=== PATIENT | male | born 1995 | race Caucasian/White ===

== ENCOUNTER 2018-11-01 12:05 | Emergency (ER) | payer OTHER ==
[2018-11-01 12:46] VITALS: BP 172/75; PULSE 99; RESP 18; TEMP 98.5
--- NOTE | 2018-11-01 14:45 | ED ---
Extremity Problem HPI - General Chief complaint: Extremity Problem,Nontraumatic Stated complaint: Leg pain Time Seen by Provider: 11/01/18 13:29 Source: patient Mode of arrival: ambulatory Limitations: no limitations - History of Present Illness Initial comments: Patient is a 22-year-old male complaining of right upper leg/glut pain that radiates down towards the knee. It started about 3 weeks ago after helping a friend move. He is pain-free at rest and lying down. Pain increases when he is walking or standing for long periods of time. Denies any trauma/falls. 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 He has tried Motrin for pain relief with little improvement. - Related Data Allergies Allergy/AdvReac Type Severity Reaction Status Date / Time Penicillins Allergy Rash/Hives Verified 11/01/18 12:47 Review of Systems ROS Statement: Those systems with pertinent positive or pertinent negative responses have been documented in the HPI. ROS Other: All systems not noted in ROS Statement are negative. Past Medical History Past Medical History: No Reported History History of Any Multi-Drug Resistant Organisms: None Reported Past Surgical History: Orthopedic Surgery Past Psychological History: Anxiety Smoking Status: Current every day smoker Past Alcohol Use History: Occasional Past Drug Use History: Marijuana General Exam - General Exam Comments Initial Comments: General: [Well-developed well-nourished distress] HEENT: [Normocephalic/atraumatic, PERLL, pharynx erythema, swallowing well, EAC no erythema, no exudates, TM clear, no cervical lymph nodes] Neck: [Supple, nontender, trachea midline] Chest/Lungs: [Normal respirations, no signs of respiratory distress clear to auscultation bilaterally no wheezes, rales, rhonchi] Cardiac: [Regular rate and rhythm, normal S1-S2, no murmurs rubs or gallops ] Abdomen/GI: [Soft nontender, bowel sounds equal or quadrant x4, no guarding, no rebound no CVA tenderness] : [Deferred] Musculoskeletal: [TTP in right glut, lateral hip, + SLR on the right with increasing pain. No pain on the spine or SI joint.] Skin: [Warmth, no rashes or lesions, no cyanosis or diaphoresis] Neurologic: [AAO x 3, CN 2-12 intact, ] Psychiatric: [Mood and affect normal, judgment normal] Limitations: no limitations Course Vital Signs 11/01/18 12:44 Temperature 98.5 F Pulse Rate 99 Respiratory 18 Rate Blood Pressure 172/75 O2 Sat by Pulse 95 Oximetry Medical Decision Making - Medical Decision Making Patient is a 22-year-old male complaining of right hip pain 3 weeks after helping a friend move. Describes the pain as radiating down to the right knee. Pain with straight leg raise. Discussed with patient sciatica. Discharged home with instructions for heating stretching and follow-up with primary care if pain continues. Suggested trying Aleve for pain. Disposition Clinical Impression: Sciatica, right side Narrative: Please return to the Emergency Department if symptoms worsen or any other concerns. Hat, stretches, ibuprofen or Aleve as needed. Disposition: HOME SELF-CARE Condition: Stable Instructions (If sedation given, give patient instructions): Sciatica (ED) Additional Instructions: Please return to the Emergency Department if symptoms worsen or any other concerns. Is patient prescribed a controlled substance at d/c from ED?: No Referrals: None,Stated [Primary Care Provider] - 1-2 days
== END 2018-11-01 15:10 | disposition home or self-care (01) ==
LOC: EC 12:05
DX: M54.31 Sciatica, right side (principal); F17.200 Nicotine dependence, unspecified, uncomplicated; Z88.0 Allergy status to penicillin
CPT/HCPCS: 99283

== ENCOUNTER → 2019-11-06 | Outpatient (CLI) | payer OTHER ==
[2019-11-06 15:23] LABS: Basophils # (A) 0.1 k/uL (0-0.2); Basophils % (A) 1 %; Eosinophils # (A) 0.2 k/uL (0-0.7); Eosinophils % (A) 2 %; Lymphocytes # (A) 1.2 k/uL (1.0-4.8); Lymphocytes % (A) 15 %; MCH 33.5 pg (25.0-35.0); MCHC 33.5 g/dL (31.0-37.0); MCV 100.1 fL (80.0-100.0); Mean Platelet Volume 6.4; Monocytes # (A) 0.5 k/uL (0-1.0); Monocytes % (A) 6 %; Neutrophils % (A) 74 %; Platelet Count 284 k/uL (150-450); RDW 13.4 % (11.5-15.5); WBC 8.1 k/uL (3.8-10.6)
[2019-11-06 15:24] LABS: HGB 20.4 gm/dL (13.0-17.5)
[2019-11-07 03:32] LABS: African American GFR (CKD) 154.2 (60.0-200.0); Albumin 5.2 g/dL (3.80-4.90); Albumin/Globulin Ratio 1.68 (1.60-3.17); Anion Gap 11.9 mmol/L (4.00-12.00); BUN/Creat Ratio 8.57 Ratio (12.00-20.00); Calcium 10.4 mg/dL (8.7-10.3); Carbon Dioxide 23.1 mmol/L (21.6-31.8); Globulin 3.1 g/dL (1.6-3.3); Potassium 4.2 mmol/L (3.5-5.5); Total Bilirubin 0.8 mg/dL (0.3-1.2); Total Protein 8.3 g/dL (6.2-8.2)
== END | disposition home or self-care (01) ==
LOC: LABWHC1 14:54
PROVIDERS: ATTEND Family Medicine
DX: Z01.818 Encounter for other preprocedural examination (principal); R00.0 Tachycardia, unspecified
CPT/HCPCS: 36415; 80053; 84443; 85025

== ENCOUNTER → 2019-11-07 | Outpatient (CLI) | payer OTHER ==
[2019-11-07 13:33] LABS: INR 1.1 (<1.2)
== END | disposition home or self-care (01) ==
LOC: LABWHC1 13:09
PROVIDERS: ATTEND Family Medicine
DX: Z01.818 Encounter for other preprocedural examination (principal); R00.0 Tachycardia, unspecified
CPT/HCPCS: 36415; 85610

== ENCOUNTER → 2019-11-09 | Outpatient (CLI) | payer OTHER ==
--- NOTE | 2019-11-09 14:52 | XR ---
EXAMINATION TYPE: XR chest 2V DATE OF EXAM: 11/09/2019 COMPARISON: NONE HISTORY: Z 71.3 TECHNIQUE: Frontal and lateral views of the chest are obtained. FINDINGS: There is no focal air space opacity, pleural effusion, or pneumothorax seen. The cardiac silhouette size is within normal limits. The osseous structures are intact. IMPRESSION: No acute cardiopulmonary process.
--- NOTE | 2019-11-09 16:42 | CT ---
EXAMINATION TYPE: CT abdomen pelvis w con DATE OF EXAM: 11/09/2019 COMPARISON: None INDICATION: abnormal liver function tests DLP: 1327.7 mGycm, Automated exposure control for dose reduction was used. CONTRAST: 100 mL of Isovue 300. Study performed with Oral Contrast TECHNIQUE: Axial images were obtained from above the diaphragm to the pubic rami in the axial plane a t 5 mm thick sections. Reconstructed images are reviewed on the computer in the coronal plane. FINDINGS: Limited CT sections are obtained the lung bases. The lung bases are clear. CT ABDOMEN: Liver: There is mild diffuse diminished density within the liver compatible with mild fatty infiltrat ion. Hepatomegaly is present at 20.6 cm. Normal less than 15.5 cm. Spleen: Normal Pancreas: Normal Adrenal glands: The adrenal glands are normal. Gallbladder: Normal Kidneys: No masses are evident. No hydronephrosis is present. No cysts are present. A 0.2 cm infer ior pole nonobstructing renal stone is likely present. Aorta: Normal Inferior vena cava: Normal. CT PELVIS: There is diffuse thickening through the sigmoid colon. Correlate for colitis. No acute diverticulitis is evident. Couple of diverticula are evident within the proximal sigmoid colon. Some additional wal l thickening may be within the ascending colon. No obstruction is evident. Small bowel loops with con trast appear normal There are loops of bowel which are incompletely distended or lack oral contrast l imiting their evaluation. Appendix: Normal as visualized. Urinary bladder: Normal. Genitourinary structures: Prostate is normal Osseous structures: No suspicious lytic or sclerotic lesions. Advanced destructive changes of the rig ht femoral head deformity is evident. Findings are likely related to osteonecrosis of the femoral hea d. IMPRESSIONS: 1. Wall thickening through the sigmoid colon and possibly near the ascending colon and cecum. Correl ate for acute colitis. 2. Note is made of advanced degenerative changes within the right femoral head suggestive for osteone crosis. 3. Moderate fatty infiltration to the liver. 4. Nonobstructing inferior pole left renal stone
== END | disposition home or self-care (01) ==
LOC: RADCTMAIN 14:33
PROVIDERS: ATTEND Internal Medicine Hematology & Oncology
DX: K63.89 Other specified diseases of intestine (principal); K76.0 Fatty (change of) liver, not elsewhere classified; N20.0 Calculus of kidney; Z88.0 Allergy status to penicillin; Z71.3 Dietary counseling and surveillance
CPT/HCPCS: 71046; 74177; Q9967

== ENCOUNTER 2019-12-29 09:17 | Day surgery (SDC) | payer OTHER ==
[2019-12-28 12:10] VITALS: BMI 33.4
[2019-12-29 09:40] VITALS: RESP 16; TEMP 97.7
[2019-12-29] MEDS ORDERED: LIDOCAINE 1% (10MG/ML) FOR IV START INTRADERMA ONE (09:52)
[2019-12-29] MEDS: LACTATED RINGERS 1,000 ML IV SCH ×2 (09:52→10:06)
[2019-12-29] MEDS ORDERED: fentaNYL (PF) 50 MCG/ML 2 ML AMP ONE (10:06)
[2019-12-29] MEDS ORDERED: PROPOFOL 10 MG/ML 20 ML VIAL IV ONE (10:06)
--- NOTE | 2019-12-29 10:28 | P.PCN ---
Date of Procedure: 12/29/19 Procedure(s) Performed: Brief history: Patient is a pleasant 23-year-old white female scheduled for an elective upper endoscopy as well as colonoscopy as a part of evaluation of if intermittent dysphagia to solids and abnormal CAT scan that showed thickening of the left colon. He denies any abdominal pain or diarrhea. Procedure performed: Esophagogastroduodenoscopy with biopsy Colonoscopy Preoperative diagnosis: Dysphagia Abdominal CAT scan showed thickened left colon Anesthesia: [facility] [place] Procedure: After informed consent was obtained from the patient was brought into the endoscopy unit and IV sedation was administered by anesthesia under continuous monitoring. Initially upper endoscopy was done. The Olympus GF 160 video endoscope was inserted inserted into the mouth and esophagus intubated without any difficulty and was gradually advanced into the stomach and duodenum and carefully examined. The bulb and second part of the duodenum appeared normal. The scope was then withdrawn into the stomach adequately insufflated with air and upon careful examination the antrum had mild gastritis and biopsies were done from this area. The body, cardia and fundus appeared normal. The scope was then withdrawn into the esophagus. The GE junction was located at 40 cm to the incisors. It appeared regular with no erythema erosions or ulcerations. Rest of the esophagus appeared normal. Biopsies were done from the distal esophagus. Patient tolerated the procedure well. At this time the patient continued to remain sedation. Initial digital rectal examination was normal. Olympus CF 160 video colonoscope was then inserted into the rectum and gradually advanced to the cecum without any difficulty. Careful examination was performed as the scope was gradually being withdrawn. The prep was excellent. The cecum, ascending colon, transverse colon, descending colon, sigmoid colon and rectum appeared normal. Retroflexion was performed in the rectum and no lesions were noted. Patient tolerated the procedure well. Impression: 1. Upper endoscopy revealed mild antral gastritis but no evidence of esophagitis or esophageal stricture. 2. Colonoscopy was essentially within normal limits with no evidence of colitis or colorectal neoplasia Recommendations: Findings of this examination were discussed with the patient as well as[ his family. He was advised to follow with the biopsy results.
[2019-12-29 10:49] VITALS: BP 130/70; PULSE 79
== END 2019-12-29 10:56 | disposition home or self-care (01) ==
LOC: ORWHC2ENDO 09:17
PROVIDERS: ATTEND Internal Medicine Gastroenterology
DX: K22.8 Other specified diseases of esophagus (principal); K29.70 Gastritis, unspecified, without bleeding; R13.10 Dysphagia, unspecified; R94.8 Abnormal results of function studies of other organs and systems; J45.909 Unspecified asthma, uncomplicated; K21.9 Gastro-esophageal reflux disease without esophagitis; F17.210 Nicotine dependence, cigarettes, uncomplicated; Z98.890 Other specified postprocedural states; Z79.899 Other long term (current) drug therapy
CPT/HCPCS: 88305; 45378; 43239; J3010; J2704

== ENCOUNTER → 2020-02-05 | Outpatient (CLI) | payer OTHER ==
--- NOTE | 2020-02-06 13:53 | XR ---
EXAMINATION TYPE: XR bone survey complete DATE OF EXAM: 02/05/2020 COMPARISON: None HISTORY: Abnormal labwork, hypercalcemia TECHNIQUE: Bone survey is performed with multiple projections FINDINGS: Skull: 2 views of the skull are unremarkable. No lytic or sclerotic lesions are evident. Cervical spine: AP and lateral views of the cervical spine without acute changes. There is some strai ghtening of the cervical spine in the lateral projection. Posterior spinal lamellar line is intact. CHEST: Heart size is normal. Pulmonary vasculature is normal. Lungs are clear. No suspicious osseous abnormality is evident. Humeri: Single views of the bilateral humeri are unremarkable. Pelvis: AP view of the pelvis is obtained. There is advanced degenerative changes at the right hip wi th loss of the femoral head and some destruction. Remainder of the osseous structures appear intact. Femurs: There is destruction of the right femoral head. Some possible elevation of the cortex on the right hip at the level of the lesser trochanter along the lateral aspect may be present. This could b e some artifact from muscle shadow. The more anterior visualized cortex underneath appears to be inta ct. Lucencies are within the distal femur at the level of the knee. Milder lytic areas are within the distal left femur. Left femoral head is preserved. Lumbar spine: There 5 lumbar-type vertebral bodies. Pedicles are intact. T12 is transitional with mimi imentary ribs. There is partial lumbarization of S1 on the left. Thoracic spine: There are 13 vertebral bodies. The lowest thoracic vertebral body appears to be trans itional thoracic type. Pedicles are intact. Disc heights are preserved. Vertebral body heights are pr eserved. IMPRESSION: 1. Transitional vertebral bodies are present. Plain film correlation would be recommended prior to any surgical intervention. 2. Destruction of the right femoral head correlate for osteonecrosis. 3. Lucencies within the distal femurs predominantly on the right adjacent to the knee joint spaces. 4. There may be some cortical abnormality along the lateral right femur at the proximal diaphysis lat erally. This could be artifact from underlying muscle shadow.
== END | disposition home or self-care (01) ==
LOC: RADXRMAIN 14:45
PROVIDERS: ATTEND Internal Medicine Hematology & Oncology
DX: M89.8X5 Other specified disorders of bone, thigh (principal)
CPT/HCPCS: 77075

== ENCOUNTER → 2020-06-10 | Outpatient (CLI) | payer OTHER ==
[2020-06-10 13:31] LABS: Appearance,Urine Clear (Clear); Bilirubin,Urine Negative (Negative); Blood,Urine Negative (Negative); Color,Urine Light Yellow; Glucose,Urine (UA) Negative (Negative); HGB 16.8 gm/dL (13.0-17.5); Ketones,Urine Negative (Negative); Leukocyte Esterase,Urine Negative (Negative); MCH 31.8 pg (25.0-35.0); MCV 90.7 fL (80.0-100.0); Mean Platelet Volume 6.3; Nitrite,Urine Negative (Negative); PH, Urine 7.5 (5.0-8.0); Platelet Count 327 k/uL (150-450); Protein,Urine Negative (Negative); RBC 5.29 m/uL (4.30-5.90); RDW 12.4 % (11.5-15.5); Specific Gravity,Urine 1.008 (1.001-1.035); Urobilinogen,Urine <2.0 mg/dL (<2.0); WBC 9.4 k/uL (3.8-10.6)
[2020-06-10 13:40] LABS: INR 0.9 (<1.2); Partial Thromboplastin Time 32.2 sec (22.0-30.0)
[2020-06-10 13:42] LABS: ALT 37 U/L (4-49); AST 36 U/L (17-59); African American GFR (CKD) >90 (>60 ml/min/1.73 sqM); Albumin 5.2 g/dL (3.5-5.0); Alkaline Phosphatase 118 U/L (38-126); Anion Gap 10 mmol/L; Blood Urea Nitrogen 9 mg/dL (9-20); Calcium 10.6 mg/dL (8.4-10.2); Carbon Dioxide 25 mmol/L (22-30); Chloride 104 mmol/L (98-107); Glucose 85 mg/dL (74-99); Non-African American GFR(CKD) >90 (>60 ml/min/1.73 sqM); Potassium 4.7 mmol/L (3.5-5.1); Sodium 139 mmol/L (137-145); Total Bilirubin 0.5 mg/dL (0.2-1.3); Total Protein 9.3 g/dL (6.3-8.2)
== END | disposition home or self-care (01) ==
LOC: LABPAT 11:40
PROVIDERS: ATTEND Orthopaedic Surgery
DX: Z01.818 Encounter for other preprocedural examination (principal); Z01.812 Encounter for preprocedural laboratory examination; M87.88 Other osteonecrosis, other site
CPT/HCPCS: 36415; 80053; 81003; 85027; 85610; 85730; 87070; 93005

== ENCOUNTER 2020-06-17 05:51 | Day surgery (SDC) | payer OTHER ==
[2020-06-10 14:36] VITALS: BMI 33.4
[~2020-06-17 05:51] MED LIST: ACETAMINOPHEN TAB 500 MG TAB PO PRN; GABAPENTIN 300 MG CAP PO PRN; MELOXICAM 7.5 MG TAB PO PRN; ROPIVACAINE/EPI/CLONIDINE/KET 50 ML SYRINGE MISCELLANE PRN; TRANEXAMIC ACID 1,000 MG in SODIUM CHLORIDE 0.9% 100 ML IVPB PRN
[2020-06-17] MEDS ORDERED: DEXAMETHASONE SOD PHOSPHATE 4 MG/ML 1 ML VIAL IV ONE (05:56)
[2020-06-17] MEDS ORDERED: LACTATED RINGERS 1,000 ML IV SCH (05:56)
[2020-06-17] MEDS ORDERED: ONDANSETRON 4 MG/2 ML VIAL IVP ONE ×2 (05:56→11:13)
[2020-06-17] MEDS ORDERED: LIDOCAINE 1% (10MG/ML) FOR IV START INTRADERMA ONE (06:29)
[2020-06-17] MEDS ORDERED: SUCCINYLCHOLINE CHLORIDE VIAL 200 MG/10 ML VIAL IV ONE (06:56)
[2020-06-17] MEDS ORDERED: KETAMINE 10 MG/ML 20 ML VIAL ONE (06:56)
[2020-06-17] MEDS ORDERED: ROCURONIUM 10 MG/ML (10 ML VIAL) IV ONE (06:56)
[2020-06-17] MEDS ORDERED: SODIUM CHLORIDE 0.9% 100 ML BAG ONE (06:56)
[2020-06-17] MEDS ORDERED: HYDROmorphone (PF) 1 MG/ML ONE (06:56)
[2020-06-17] MEDS ORDERED: HEPARIN SODIUM,PORCINE 10,000 UNIT/ML 1 ML VIAL ONE (06:56)
[2020-06-17] MEDS ORDERED: TRANEXAMIC ACID 1,000 MG/10 ML VIAL ONE (06:56)
[2020-06-17] MEDS ORDERED: LIDOCAINE 1% INJ 10MG/ML (20 ML MDV) ONE (06:56)
[2020-06-17] MEDS ORDERED: MIDAZOLAM 2 MG/2 ML VIAL ONE (06:56)
[2020-06-17] MEDS ORDERED: PROPOFOL 10 MG/ML 20 ML VIAL IV ONE (06:56)
[2020-06-17] MEDS ORDERED: SODIUM CHLORIDE 0.9% IRRIG 1,000 ML BTL IRRIGATION ONE (06:56)
[2020-06-17] MEDS ORDERED: fentaNYL (PF) 50 MCG/ML 2 ML AMP ONE (06:56)
[2020-06-17] MEDS ORDERED: ROPIVACAINE/EPI/CLONIDINE/KET 50 ML SYRINGE MISCELLANE PRN (06:58)
[2020-06-17] MEDS ORDERED: ACETAMINOPHEN TAB 500 MG TAB ONE (06:58)
[2020-06-17] MEDS ORDERED: GABAPENTIN 300 MG CAP PO ONE (07:01)
[2020-06-17] MEDS ORDERED: MELOXICAM 7.5 MG TAB PO ONE (07:02)
[2020-06-17] MEDS ORDERED: ceFAZolin 3,000 MG in SODIUM CHLORIDE 0.9% IRRIGATIO 3,000 ML IRRIGATION ONE (07:15)
--- NOTE | 2020-06-17 08:26 | P.OP ---
Date of Procedure: 06/17/20 Preoperative Diagnosis: Avascular necrosis right hip Postoperative Diagnosis: Avascular necrosis right hip Procedure(s) Performed: Right total hip arthroplasty with a direct anterior approach Implants: [employer] Polarstem standard size 3 [employer] R3, 3 hole hemispherical acetabular shell, 52 mm [employer] Reflection 6.5 mm cancellus screw, 20 mm 2 [employer] R3, XLPE 20 acetabular liner [employer] Oxinium femoral head 36 m, +4 All components were press-fit. The articulation is Oxinium on polyethylene. Anesthesia: GETA Surgeon: Xavier Harris Political Geographer #1: Usha Gandhi Estimated Blood Loss (ml): 600 (261 mL returned with Cell Saver) Pathology: other (Femoral head) Condition: stable Disposition: PACU Indications for Procedure: After failure of conservative treatment we discussed the surgical and nonsurgical treatment options at length. Patient wishes to proceed with a total hip arthroplasty with a direct anterior approach. Complications specific to this procedure were discussed at length, including but not limited to infection, leg length discrepancy, dislocation, nerve injury, and fracture. Covid-19 was also discussed at length with the patient, and they are aware of the current policies and procedures. The patient was given the option of delaying surgery, but they elect to proceed knowing these risks. Patient is aware of all these complications and informed consent was obtained Operative Findings: Operative findings are consistent with severe avascular necrosis of the right femoral head with significant femoral collapse Description of Procedure: Patient was seen and evaluated in the preoperative area and the consent was reviewed. The operative site was marked with a skin marker. The patient was then brought to the operating room and given preoperative antibiotics intravenously. 1 g of Tranexamic acid was also given intravenously. A general anesthetic was administered by the anesthesia department. The patient was then placed on the [place] table with the bony prominences well-padded. The hip area was then prepped with a ChloraPrep solution and draped in the usual sterile fashion. A universal timeout was then performed, which confirmed the patient's name, surgical site, ALLERGIES, and procedure being performed on the consent. Next the incision site was located at 1 cm distal and 1 cm lateral to the anterior superior iliac spine. The skin and subcutaneous tissues were sharply incised. Incision was carefully dissected down to the fascia overlying the tensor fascia joel muscle. This fascia was then incised in line with the incision. Care was taken to stay laterally in order to avoid injuring the lateral femoral cutaneous nerve. Next, using blunt finger dissection, the tensor fascia joel muscle was dissected off its investing fascia. The muscle was then carefully retracted laterally with a cobra retractor over the lateral neck of the femur. Next, the circumflex vessels were identified and cauterized using the AquaMantis device. The anterior hip capsule was then exposed. The capsule was then opened and an inverted T fashion. Cobra retractors were then placed intracapsularly. The retractors were maintained intracapsular throughout the procedure. The proximal femur was then visualized. A small amount of traction was placed on the leg. The femoral neck was then osteotomized appropriate level above the lesser trochanter. A small wedge of bone was then removed from the remaining femoral head. Next, using a corkscrew the femoral head was removed from the acetabulum. On gross visual inspection, the femoral head had severe avascular necrosis of the femoral head. The femoral head was then measured. Attention was then turned to the acetabulum. The acetabulum was exposed and any remaining labrum was excised. Sequential reaming of the acetabulum was performed using fluoroscopic guidance until there was a good bed of bleeding cancellus bone. When the appropriate size was reached, a trial was then placed. The position and fit of the trial was checked with fluoroscopy. The trial was then removed. Then, using fluoroscopic guidance, the final implant was impacted at 20 of anteversion and 40 of abduction, and fully seated in the acetabulum. 2 screws were then placed in the acetabulum. Again fluoroscopy was used to check position of the screws. Next, the liner was then impacted, with a 20 elevated liner located in the anterior superior quadrant. Component locking was confirmed. Attention was then directed to the femur. With the aid of the [place] table, the femur was externally rotated to approximately 130, extended, and adducted under the opposite leg. A side hook was then placed under the proximal femur, and the side hook elevator was used to elevate the proximal femur while releasing the capsule. Retractors were then placed. A capsular release was performed, as well as a release of the conjoined tendon, which afforded excellent visualization of the proximal femur. Next, a box osteotome was used to lateralize the proximal femur. A hand cementer was then used to locate the femoral canal. Sequential broaching was then performed with appropriate size which afforded excellent fixation in the proximal femur. A trial was then placed with appropriate head and neck, and the hip was gently reduced with the aid of the [place] table. Fluoroscopy was then used to check position of the components, as well as to ensure equal leg lengths. The hip was then gently dislocated and the trials were then removed. Final implants were then impacted and the hip was again reduced. Final fluoroscopic x-rays confirmed that the components were in anatomic position, as well as equal leg lengths. The hip was also taken through range of motion, and found to be stable. The hip was then copiously irrigated with antibiotic solution with pulsatile lavage. The hip was then irrigated with Irrisept solution. The soft tissues we re then injected with a ropivacaine solution, which consisted of 246.25 mg of ropivacaine, 0.5 mg of epinephrine, 30 mg of Toradol, 80 g of clonidine, and 48.45 mL of sterile water, for a total of 100 mL of fluid injected. A second dose of 1 g of Tranexamic acid was also given intravenously. Any blood collected by Cell Saver was then returned to the patient at this time. The fascia was then closed with 2-0 strata fix suture. The subcutaneous tissue was closed with 3-0 Vicryl. The subcuticular tissue was closed with 3-0 strata fix suture. The skin was then closed with Exofin skin glue. After the glue and dried, and Optifoam silver impregnated dressing was applied. The patient was then transferred to the recovery room in stable condition. The medical support assistant LANCE Boyd was required due to the complexity of surgery, and the need for skilled surgical dressing maker for positioning, draping, exposure, retraction, and closure of the wound.
[2020-06-17] MEDS ORDERED: ONDANSETRON 4 MG/2 ML VIAL IVP PRN (08:51)
[2020-06-17] MEDS ORDERED: HYDROmorphone 0.5 MG/0.5 ML SYRINGE IVP PRN (08:51)
[2020-06-17] MEDS ORDERED: HYDROmorphone 0.2 MG/1 ML SYRINGE IVP PRN (08:51)
[2020-06-17] MEDS ORDERED: NALOXONE 0.4 MG/ML 1 ML VIAL IV PRN (08:51)
[2020-06-17] MEDS ORDERED: HYDROmorphone 1 MG/ML 1 ML SYRINGE IVP PRN (08:51)
[2020-06-17] MEDS ORDERED: HYDROcodone/APAP 7.5-325MG 1 EACH TAB PO PRN ×2 (08:53)
[2020-06-17] MEDS ORDERED: SODIUM CHLORIDE 0.9% 1,000 ML IV SCH (09:00)
[2020-06-17 09:04] VITALS: TEMP 97.5
[2020-06-17] MEDS: HYDROmorphone 0.5 MG/0.5 ML SYRINGE IVP PRN ×2 (09:16→09:21)
[2020-06-17] MEDS ORDERED: LACTATED RINGERS 1,000 ML IV ONE (09:22)
[2020-06-17] MEDS: MEPERIDINE 50 MG/ML SYRINGE IVP ONE ×2 (09:41→09:46)
--- NOTE | 2020-06-17 09:49 | XR ---
EXAMINATION TYPE: XR Hip Limited RT, XR Hip Limited RT DATE OF EXAM: 06/17/2020 Comparison: Bone survey 02/05/2020 Clinical History: 24-year-old male [employer] Findings: Images showing right hip arthroplasty. FLUOROSCOPY Fluoroscopy time of 53 seconds was used during hardware placement, right hip arthroplasty. 2 image/s document/s the procedure. Impression: Intraoperative fluoroscopy as above. There maybe some early changes of AVN on the left hip as well.
[2020-06-17] MEDS ORDERED: HYDROcodone/APAP 7.5-325MG 1 EACH TAB PO ONE (12:03)
[2020-06-17 12:46] VITALS: RESP 16
[2020-06-17 14:03] VITALS: BP 108/66; PULSE 91
[2020-06-18] MEDS ORDERED: MELOXICAM 7.5 MG TAB PO SCH (09:00)
== END 2020-06-17 14:06 | disposition home health service (06) ==
LOC: OR 05:51
PROVIDERS: ATTEND Orthopaedic Surgery
DX: M87.051 Idiopathic aseptic necrosis of right femur (principal); M16.11 Unilateral primary osteoarthritis, right hip; Z88.0 Allergy status to penicillin; Z88.5 Allergy status to narcotic agent; F41.9 Anxiety disorder, unspecified; F32.9 Major depressive disorder, single episode, unspecified; K21.9 Gastro-esophageal reflux disease without esophagitis; Z87.891 Personal history of nicotine dependence
CPT/HCPCS: 97110; 97161; 86891; 88305; 88311; 73501; 27130; C1776; J2250; J0330; J1644; J1100; J2175; J0690 ×2; J2405; J2001; J3010; J1170 ×2; J2704; 86850; 86900; 86901

== ENCOUNTER → 2020-08-06 | Outpatient (CLI) | payer OTHER ==
[2020-08-06 14:05] LABS: Appearance,Urine Clear (Clear); Bilirubin,Urine Negative (Negative); Blood,Urine Negative (Negative); Color,Urine Yellow; Glucose,Urine (UA) Negative (Negative); Ketones,Urine Negative (Negative); Leukocyte Esterase,Urine Negative (Negative); Nitrite,Urine Negative (Negative); Protein,Urine Negative (Negative); Specific Gravity,Urine 1.016 (1.001-1.035); Urobilinogen,Urine <2.0 mg/dL (<2.0)
[2020-08-06 14:09] LABS: ALT 40 U/L (4-49); AST 35 U/L (17-59); African American GFR (CKD) >90 (>60 ml/min/1.73 sqM); Alkaline Phosphatase 138 U/L (38-126); Anion Gap 12 mmol/L; Blood Urea Nitrogen 10 mg/dL (9-20); Calcium 10.3 mg/dL (8.4-10.2); Carbon Dioxide 25 mmol/L (22-30); Chloride 102 mmol/L (98-107); Glucose 83 mg/dL (74-99); Non-African American GFR(CKD) >90 (>60 ml/min/1.73 sqM); Potassium 4.5 mmol/L (3.5-5.1); Sodium 139 mmol/L (137-145); Total Bilirubin 0.5 mg/dL (0.2-1.3); Total Protein 8.4 g/dL (6.3-8.2)
[2020-08-06 14:11] LABS: INR 0.9 (<1.2); Partial Thromboplastin Time 30.4 sec (22.0-30.0); Prothrombin Time 10.1 sec (9.0-12.0)
[2020-08-06 14:21] LABS: HCT 44.7 % (39.0-53.0); MCH 30.2 pg (25.0-35.0); MCHC 33.6 g/dL (31.0-37.0); MCV 89.8 fL (80.0-100.0); Mean Platelet Volume 6.5; Platelet Count 323 k/uL (150-450); RBC 4.98 m/uL (4.30-5.90); RDW 12.9 % (11.5-15.5); WBC 7.2 k/uL (3.8-10.6)
== END | disposition home or self-care (01) ==
LOC: LABPAT 13:16
PROVIDERS: ATTEND Orthopaedic Surgery
DX: Z01.812 Encounter for preprocedural laboratory examination (principal); Z01.810 Encounter for preprocedural cardiovascular examination
CPT/HCPCS: 36415; 80053; 81003; 85027; 85610; 85730; 86850; 86900; 86901; 87070

== ENCOUNTER 2020-08-13 07:58 | Day surgery (SDC) | payer OTHER ==
[2020-08-07 11:42] VITALS: BMI 33.4
[~2020-08-13 07:58] MED LIST changes: +DEXAMETHASONE SOD PHOSPHATE 4 MG/ML 1 ML VIAL IV ONE; +LACTATED RINGERS 1,000 ML IV SCH; +LIDOCAINE 1% (10MG/ML) FOR IV START INTRADERMA PRN; +ONDANSETRON 4 MG/2 ML VIAL IVP ONE; -ROPIVACAINE/EPI/CLONIDINE/KET 50 ML SYRINGE MISCELLANE PRN
[2020-08-13 08:31] VITALS: RESP 16
[2020-08-13] MEDS ORDERED: MIDAZOLAM 2 MG/2 ML VIAL IV ONE (08:52)
[2020-08-13] MEDS ORDERED: HYDROmorphone 0.5 MG/0.5 ML SYRINGE IVP PRN (09:24)
[2020-08-13] MEDS ORDERED: HYDROmorphone 0.2 MG/1 ML SYRINGE IVP PRN (09:24)
[2020-08-13] MEDS ORDERED: NALOXONE 0.4 MG/ML 1 ML VIAL IV PRN (09:24)
[2020-08-13] MEDS ORDERED: ONDANSETRON 4 MG/2 ML VIAL IVP PRN (09:24)
[2020-08-13] MEDS ORDERED: HYDROmorphone 1 MG/ML 1 ML SYRINGE IVP PRN (09:24)
[2020-08-13] MEDS ORDERED: HYDROmorphone (PF) 1 MG/ML ONE (09:25)
[2020-08-13] MEDS ORDERED: fentaNYL (PF) 50 MCG/ML 2 ML AMP ONE (09:25)
[2020-08-13] MEDS ORDERED: SODIUM CHLORIDE 0.9% IRRIG 1,000 ML BTL IRRIGATION ONE (09:25)
[2020-08-13] MEDS ORDERED: SODIUM CHLORIDE 0.9% 100 ML BAG ONE (09:25)
[2020-08-13] MEDS ORDERED: NEOSTIGMINE 1 MG/ML 10 ML VIAL ONE (09:25)
[2020-08-13] MEDS ORDERED: SUCCINYLCHOLINE CHLORIDE 100 MG/5 ML SYR IV ONE (09:25)
[2020-08-13] MEDS ORDERED: GLYCOPYRROLATE 0.2 MG/ML 2 ML VIAL ONE (09:25)
[2020-08-13] MEDS ORDERED: MIDAZOLAM 2 MG/2 ML VIAL ONE (09:25)
[2020-08-13] MEDS ORDERED: HEPARIN SODIUM,PORCINE 10,000 UNIT/ML 1 ML VIAL ONE (09:25)
[2020-08-13] MEDS ORDERED: TRANEXAMIC ACID 1,000 MG/10 ML VIAL ONE (09:25)
[2020-08-13] MEDS ORDERED: LIDOCAINE 1% INJ 10MG/ML (20 ML MDV) ONE (09:25)
[2020-08-13] MEDS ORDERED: ROCURONIUM 10 MG/ML (5 ML VIAL) IV ONE (09:25)
[2020-08-13] MEDS ORDERED: PROPOFOL 10 MG/ML 20 ML VIAL IV ONE (09:25)
[2020-08-13] MEDS ORDERED: HYDROcodone/APAP 7.5-325MG 1 EACH TAB PO PRN ×2 (09:26)
[2020-08-13] MEDS ORDERED: SODIUM CHLORIDE 0.9% 1,000 ML IV SCH (09:30)
[2020-08-13] MEDS ORDERED: ceFAZolin 3,000 MG in SODIUM CHLORIDE 0.9% IRRIGATIO 3,000 ML IRRIGATION ONE (09:30)
[2020-08-13] MEDS: ROPIVACAINE/EPI/CLONIDINE/KET 50 ML SYRINGE MISCELLANE PRN ×2 (09:57→10:44)
--- NOTE | 2020-08-13 10:55 | P.OP ---
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 The articulation is Oxinium on polyethylene. Anesthesia: GETA Surgeon: Xavier Harris Food Photographer #1: Usha Gandhi Estimated Blood Loss (ml): 300 (132 mL returned with Cell Saver) Pathology: other Condition: stable Disposition: PACU Indications for Procedure: After failure of conservative treatment we discussed the surgical and nonsurgical treatment options at length. Patient wishes to proceed with a total hip arthroplasty with a direct anterior approach. Complications specific to this procedure were discussed at length, including but not limited to infection, leg length discrepancy, dislocation, nerve injury, and fracture. Covid-19 was also discussed at length with the patient, and they are aware of the current policies and procedures. The patient was given the option of delaying surgery, but they elect to proceed knowing these risks. Patient is aware of all these complications and informed consent was obtained Operative Findings: The operative findings are consistent with stage IV avascular necrosis the femoral head with femoral head collapse Description of Procedure: Patient was seen and evaluated in the preoperative area and the consent was reviewed. The operative site was marked with a skin marker. The patient was then brought to the operating room and given preoperative antibiotics intravenously. 1 g of Tranexamic acid was also given intravenously. A general anesthetic was administered by the anesthesia department. The patient was then placed on the [place] table with the bony prominences well-padded. The hip area was then prepped with a ChloraPrep solution and draped in the usual sterile fashion. A universal timeout was then performed, which confirmed the patient's name, surgical site, ALLERGIES, and procedure being performed on the consent. Next the incision site was located at 1 cm distal and 1 cm lateral to the anterior superior iliac spine. The skin and subcutaneous tissues were sharply incised. Incision was carefully dissected down to the fascia overlying the tensor fascia joel muscle. This fascia was then incised in line with the incision. Care was taken to stay laterally in order to avoid injuring the lateral femoral cutaneous nerve. Next, using blunt finger dissection, the tensor fascia joel muscle was dissected off its investing fascia. The muscle was then carefully retracted laterally with a cobra retractor over the lateral neck of the femur. Next, the circumflex vessels were identified and cauterized using the AquaMantis device. The anterior hip capsule was then exposed. The capsule was then opened and an inverted T fashion. Cobra retractors were then placed intracapsularly. The retractors were maintained intracapsular throughout the procedure. The proximal femur was then visualized. A small amount of traction was placed on the leg. The femoral neck was then osteotomized appropriate level above the lesser trochanter. A small wedge of bone was then removed from the remaining femoral head. Next, using a corkscrew the femoral head was removed from the acetabulum. On gross visual inspection, the femoral head demonstrated stage IV avascular necrosis with collapse of the femoral head. The femoral head was then measured. Attention was then turned to the acetabulum. The acetabulum was exposed and any remaining labrum was excised. Sequential reaming of the acetabulum was performed using fluoroscopic guidance until there was a good bed of bleeding cancellus bone. When the appropriate size was reached, a trial was then placed. The position and fit of the trial was checked with fluoroscopy. The trial was then removed. Then, using fluoroscopic guidance, the final implant was impacted at 20 of anteversion and 40 of abduction, and fully seated in the acetabulum. 2 screws were then placed in the acetabulum. Again fluoroscopy was used to check position of the screws. Next, the liner was then impacted, with a 20 elevated liner located in the anterior superior quadrant. Component locking was confirmed. Attention was then directed to the femur. With the aid of the [place] table, the femur was externally rotated to approximately 130, extended, and adducted under the opposite leg. A side hook was then placed under the proximal femur, and the side hook elevator was used to elevate the proximal femur while releasing the capsule. Retractors were then placed. A capsular release was performed, as well as a release of the conjoined tendon, which afforded excellent visualization of the proximal femur. Next, a box osteotome was used to lateralize the proximal femur. A presser hand was then used to locate the femoral canal. Sequential broaching was then performed with appropriate size which afforded excellent fixation in the proximal femur. A trial was then placed with appropriate head and neck, and the hip was gently reduced with the aid of the [place] table. Fluoroscopy was then used to check position of the components, as well as to ensure equal leg lengths. The hip was then gently dislocated and the trials were then removed. Final implants were then impacted and the hip was again reduced. Final fluoroscopic x-rays confirmed that the components were in anatomic position, as well as equal leg lengths. The hip was also taken through range of motion, and found to be stable. The hip was then copiously irrigated with antibiotic solution with pulsatile lavage. The hip was then irrigated with Irrisept solution. The soft tissues were then injected with a ropivacaine solution, which consisted of 246.25 mg of ropivacaine, 0.5 mg of epinephrine, 30 mg of Toradol, 80 g of clonidine, and 48.45 mL of sterile water, for a total of 100 mL of fluid injected. A second dose of 1 g of Tranexamic acid was also given intravenously. Any blood collected by Cell Saver was then returned to the patient at this time. The fascia was then closed with 2-0 strata fix suture. The subcutaneous tissue was closed with 3-0 Vicryl. The subcuticular tissue was closed with 3-0 strata fix suture. The skin was then closed with Exofin skin glue. After the glue and dried, and Optifoam silver impregnated dressing was applied. The patient was then transferred to the recovery room in stable condition. The assistant cross country coach LANCE Boyd was required due to the complexity of surgery, and the need for skilled architectural administrative assistant for positioning, draping, exposure, retraction, and closure of the wound.
[2020-08-13] MEDS: HYDROmorphone 1 MG/ML 1 ML SYRINGE IVP ONE ×5 (11:20→11:46)
[2020-08-13] MEDS ORDERED: HYDROmorphone 1 MG/ML 1 ML SYRINGE IVP ONE (11:26)
[2020-08-13] MEDS ORDERED: diphenhydrAMINE 50 MG/ML 1 ML VIAL IVP ONE (11:27)
[2020-08-13 11:28] VITALS: TEMP 98
--- NOTE | 2020-08-13 11:44 | FL ---
EXAMINATION TYPE: FL guidance operating room, XR Hip Limited LT DATE OF EXAM: 08/13/2020 CLINICAL HISTORY: Left hip pain and osteoarthritis. TECHNIQUE: Fluoroscopy. Intraoperative limited views left hip. COMPARISON: None. FINDINGS: Fluoroscopic guidance was provided during left hip replacement procedure performed by Dr. Harris. A total of 25 seconds of fluoroscopic time was utilized during the procedure and two spot intraoperative images are acquired. Intraoperative images acquired show metallic hardware from total left hip arthroplasty satisfactory i n position on frontal projection. IMPRESSION: As Above.
[2020-08-13] MEDS ORDERED: MORPHINE SULFATE 5 MG/ML SYRINGE IVP ONE (11:45)
--- NOTE | 2020-08-13 12:22 | XR ---
EXAMINATION TYPE: XR Hip Limited LT DATE OF EXAM: 08/13/2020 CLINICAL HISTORY: Left hip pain and osteoarthritis. TECHNIQUE: Single AP portable view of left hip is obtained immediately postoperatively. COMPARISON: CT abdomen and pelvis November 09, 2019 FINDINGS: Metallic hardware from total left hip arthroplasty is seen and appears satisfactory in alig nment and position. There is evidence of recent surgery with surrounding subcutaneous gas noted. IMPRESSION: Metallic hardware from left hip arthroplasty is satisfactory in position.
[2020-08-13 14:35] VITALS: BP 142/70; PULSE 106
== END 2020-08-13 15:49 | disposition home health service (06) ==
LOC: OR 07:58
PROVIDERS: ATTEND Orthopaedic Surgery
DX: M87.052 Idiopathic aseptic necrosis of left femur (principal); M16.12 Unilateral primary osteoarthritis, left hip; D75.1 Secondary polycythemia; F32.9 Major depressive disorder, single episode, unspecified; F17.210 Nicotine dependence, cigarettes, uncomplicated; Z79.891 Long term (current) use of opiate analgesic; Z79.899 Other long term (current) drug therapy; Z88.5 Allergy status to narcotic agent; Z88.0 Allergy status to penicillin; Z98.890 Other specified postprocedural states
CPT/HCPCS: 97110; 97161; 86891; 88305; 88311; 73501; 27130; C1776; J2250; J1200; J1644; J1100; J2710; J0690 ×2; J2405; J2001; J3010; J1170; J0330; J2704; J2274; 86850; 86900; 86901

== ENCOUNTER 2024-01-23 03:43 | Inpatient (IN) | payer OTHER ==
[2024-01-23] MEDS ORDERED: ONDANSETRON 4 MG/2 ML VIAL ONE (19:03)
[2024-01-23] MEDS ORDERED: LORazepam 2 MG/ML INJ ONE ×2 (19:04→22:53)
[2024-01-23] MEDS ORDERED: SODIUM CHLORIDE 0.9% 1,000 ML BAG ONE (19:11)
[2024-01-24] MEDS ORDERED: IBUPROFEN 800 MG TAB ONE (08:38)
[2024-01-24] MEDS ORDERED: LORazepam 2 MG/ML INJ ONE ×4 (08:38→22:17)
[2024-01-24] MEDS ORDERED: ACETAMINOPHEN TAB 500 MG TAB ONE (08:39)
[2024-01-24] MEDS ORDERED: THIAMINE 100 MG/ML 2 ML VIAL ONE (17:36)
[2024-01-25] MEDS ORDERED: LORazepam 2 MG/ML INJ ONE ×5 (04:07→22:34)
[2024-01-25] MEDS ORDERED: MULTIVITAMINS, THERA 1 EACH TAB ONE (09:11)
[2024-01-25] MEDS ORDERED: PANTOPRAZOLE 40 MG/10 ML VIAL ONE (09:11)
[2024-01-25] MEDS ORDERED: THIAMINE 100 MG TAB ONE (09:11)
[2024-01-26] MEDS ORDERED: SODIUM CHLORIDE 0.9% 1,000 ML BAG ONE (03:00)
[2024-01-26] MEDS ORDERED: SODIUM CHLORIDE 0.9% 50 ML BAG ONE (03:00)
[2024-01-26] MEDS ORDERED: LORazepam 2 MG/ML INJ ONE ×3 (03:26→20:55)
[2024-01-26] MEDS ORDERED: HYDROmorphone 1 MG/ML 1 ML SYRINGE ONE (03:26)
[2024-01-26] MEDS ORDERED: THIAMINE 100 MG TAB ONE ×2 (07:58→20:54)
[2024-01-26] MEDS ORDERED: PANTOPRAZOLE 40 MG TABLET PO ONE (07:59)
[2024-01-26] MEDS ORDERED: ACETAMINOPHEN TAB 325 MG TAB ONE (08:45)
[2024-01-26] MEDS ORDERED: LACTULOSE 20 GM/30 ML CUP ONE ×2 (12:21→20:53)
[2024-01-26] MEDS ORDERED: HYDROmorphone 0.5 MG/0.5 ML SYRINGE ONE (12:22)
[2024-01-26] MEDS ORDERED: MAGNESIUM SULFATE-D5W PMX 100 ML IVPB ONE (16:05)
[2024-01-26] MEDS ORDERED: POTASSIUM CHLORIDE ER 20 MEQ TAB.ER PO ONE (16:06)
[2024-01-26] MEDS ORDERED: PANTOPRAZOLE 40 MG/10 ML VIAL ONE (20:53)
[2024-01-26] MEDS ORDERED: cefTRIAXone 1 GM VIAL ONE (20:54)
[2024-01-27] MEDS ORDERED: LACTULOSE 20 GM/30 ML CUP ONE ×3 (06:27→13:22)
[2024-01-27] MEDS ORDERED: cefTRIAXone 1 GM VIAL ONE (07:47)
[2024-01-27] MEDS ORDERED: MULTIVITAMINS, THERA 1 EACH TAB ONE (07:47)
[2024-01-27] MEDS ORDERED: THIAMINE 100 MG TAB ONE ×2 (07:47→19:52)
[2024-01-27] MEDS ORDERED: SODIUM CHLORIDE 0.9% 1,000 ML BAG ONE (08:00)
[2024-01-27] MEDS ORDERED: SODIUM CHLORIDE 0.9% 50 ML BAG ONE (08:00)
[2024-01-27] MEDS ORDERED: PANTOPRAZOLE 40 MG/10 ML VIAL ONE ×2 (09:32→19:52)
[2024-01-27] MEDS ORDERED: MAGNESIUM OXIDE 400 MG TAB ONE (13:50)
[2024-01-27] MEDS ORDERED: FOLIC ACID 1 MG TAB ONE (13:51)
[2024-01-27] MEDS ORDERED: POTASSIUM CHLORIDE ER 20 MEQ TAB.ER PO ONE (13:51)
[2024-01-27] MEDS ORDERED: LORazepam 2 MG/ML INJ ONE (15:42)
[2024-01-28] MEDS ORDERED: LACTULOSE 20 GM/30 ML CUP ONE ×3 (04:58→20:27)
[2024-01-28] MEDS ORDERED: RIFAXIMIN 200 MG TAB ONE (08:00)
[2024-01-28] MEDS ORDERED: SODIUM CHLORIDE 0.9% 50 ML BAG ONE (08:00)
[2024-01-28] MEDS ORDERED: SODIUM CHLORIDE 0.9% 1,000 ML BAG ONE (08:00)
[2024-01-28] MEDS ORDERED: MAGNESIUM OXIDE 400 MG TAB ONE (08:32)
[2024-01-28] MEDS ORDERED: FOLIC ACID 1 MG TAB ONE (08:33)
[2024-01-28] MEDS ORDERED: THIAMINE 100 MG TAB ONE ×2 (08:33→20:27)
[2024-01-28] MEDS ORDERED: PANTOPRAZOLE 40 MG/10 ML VIAL ONE ×2 (08:33→20:27)
[2024-01-28] MEDS ORDERED: MULTIVITAMINS, THERA 1 EACH TAB ONE (08:33)
[2024-01-28] MEDS ORDERED: cefTRIAXone 1 GM VIAL ONE (08:34)
[2024-01-28] MEDS ORDERED: LORazepam 2 MG/ML INJ ONE ×2 (08:34→16:57)
[2024-01-28] MEDS ORDERED: POTASSIUM CHLORIDE ER 20 MEQ TAB.ER PO ONE ×2 (20:40→23:40)
[2024-01-29] MEDS ORDERED: LACTULOSE 20 GM/30 ML CUP ONE ×2 (05:25→13:54)
[2024-01-29] MEDS ORDERED: MAGNESIUM OXIDE 400 MG TAB ONE (07:40)
[2024-01-29] MEDS ORDERED: PANTOPRAZOLE 40 MG/10 ML VIAL ONE (07:40)
[2024-01-29] MEDS ORDERED: cefTRIAXone 1 GM VIAL ONE (07:41)
[2024-01-29] MEDS ORDERED: FOLIC ACID 1 MG TAB ONE (07:41)
[2024-01-29] MEDS ORDERED: THIAMINE 100 MG TAB ONE (07:41)
[2024-01-29] MEDS ORDERED: MULTIVITAMINS, THERA 1 EACH TAB ONE (07:41)
[2024-01-29] MEDS ORDERED: LORazepam 2 MG/ML INJ ONE (07:42)
[2024-01-29] MEDS ORDERED: RIFAXIMIN 550 MG TABLET ONE (08:00)
[2024-01-29] MEDS ORDERED: SODIUM CHLORIDE 0.9% 50 ML BAG IV ONE (08:00)
[2024-01-29] MEDS ORDERED: RIFAXIMIN 200 MG TAB ONE (08:00)
[2024-01-29] MEDS ORDERED: LACTULOSE 20 GM/30 ML CUP PO PRN (23:05)
[2024-01-29] MEDS ORDERED: ONDANSETRON 4 MG/2 ML VIAL IVP PRN (23:07)
[2024-01-29] MEDS ORDERED: MORPHINE SULFATE 4 MG/ML SYRINGE IVP PRN (23:07)
[2024-01-29] MEDS ORDERED: LORazepam 2 MG/ML INJ IV PRN (23:08)
[2024-01-30 04:50] LABS: ALT 15 U/L (4-49); AST 56 U/L (17-59); African American GFR (CKD) >90 (>60 ml/min/1.73 sqM); Albumin 2.7 g/dL (3.5-5.0); Albumin/Globulin Ratio 0.8; Alkaline Phosphatase 102 U/L (38-126); Anion Gap 5 mmol/L; Blood Urea Nitrogen 3 mg/dL (9-20); Calcium 8.2 mg/dL (8.4-10.2); Carbon Dioxide 19 mmol/L (22-30); Chloride 109 mmol/L (98-107); Globulin 3.3 g/dL; Glucose 115 mg/dL (74-99); Non-African American GFR(CKD) >90 (>60 ml/min/1.73 sqM); Potassium 3.2 mmol/L (3.5-5.1); Sodium 133 mmol/L (137-145)
[2024-01-30 05:28] LABS: Total Bilirubin 17.8 mg/dL (0.2-1.3)
[2024-01-30 06:14] LABS: Basophils % (A) 1 %; Eosinophils # (A) 0.1 k/uL (0-0.7); Eosinophils % (A) 1 %; HCT 29.6 % (39.0-53.0); HGB 9.9 gm/dL (13.0-17.5); Hypochromasia Slight; Lymphocytes % (A) 13 %; MCH 37.2 pg (25.0-35.0); MCHC 33.4 g/dL (31.0-37.0); MCV 111.3 fL (80.0-100.0); Macrocytosis Marked; Mean Platelet Volume 7.8; Monocytes # (A) 0.8 k/uL (0-1.0); Monocytes % (A) 12 %; Neutrophils # (A) 5.2 k/uL (1.3-7.7); Neutrophils % (A) 72 %; Platelet Count 281 k/uL (150-450); RBC 2.66 m/uL (4.30-5.90); RDW 14.3 % (11.5-15.5); WBC 7.3 k/uL (3.8-10.6)
[2024-01-30] MEDS: LORazepam 2 MG/ML INJ IV PRN (07:54)
[2024-01-30] MEDS: SODIUM CHLORIDE 0.9% 1,000 ML IV SCH (08:08)
[2024-01-30] MEDS: MULTIVITAMINS, THERA 1 EACH TAB PO SCH (10:53)
[2024-01-30] MEDS: MAGNESIUM OXIDE 400 MG TAB PO SCH (10:54)
[2024-01-30] MEDS: POTASSIUM CHLORIDE ER 20 MEQ TAB.ER PO STA ×2 (10:54→12:11)
[2024-01-30] MEDS: THIAMINE 100 MG TAB PO SCH (10:54)
[2024-01-30] MEDS: LACTULOSE 20 GM/30 ML CUP PO SCH ×2 (10:54→15:57)
--- NOTE | 2024-01-30 11:09 | P.PN ---
Subjective Progress Note Date: 01/30/24 This is a 28-year-old male who comes in with alcoholic hepatitis had continued elevation of his ammonia level has been continued on lactulose and started on rifaximin. His ammonia level remained elevated yesterday at 83 for this reason patient was put on increased dose of rifaximin as well as lactulose. Today his ammonia level is down to 68. Sodium levels 133, potassium of 3.2. He states he has been having 10 plus bowel movements per day. His color looks better. He is not having any abdominal pain or nausea. Would expect him to discharge in the next day or so once the ammonia level comes down. He has been using his own nicotine patches in the room. 21 mg patch has been ordered for him here. Review of Systems Constitutional: Denied any fatigue denied any fever. Cardio vascular: denied any chest pain, palpitations Gastrointestinal: denied any nausea, vomiting, diarrhea Pulmonary: Denied any shortness of breath cough Neurologic denied any new focal deficits All inpatient medications were reviewed and appropriate changes in these medications as dictated in the interval history and assessment and plan. PHYSICAL EXAMINATION: GENERAL: The patient is alert and oriented x3, not in any acute distress. Well developed, well nourished. HEENT: Pupils are round and equally reacting to light. EOMI. No scleral icterus. No conjunctival pallor. Normocephalic, atraumatic. No pharyngeal erythema. No thyromegaly. CARDIOVASCULAR: S1 and S2 present. No murmurs, rubs, or gallops. PULMONARY: Chest is clear to auscultation, no wheezing or crackles. ABDOMEN: Soft, nontender, nondistended, normoactive bowel sounds. No palpable organomegaly. MUSCULOSKELETAL: No joint swelling or deformity. EXTREMITIES: No cyanosis, clubbing, or pedal edema. NEUROLOGICAL: Gross neurological examination did not reveal any focal deficits. SKIN: No rashes. Assessment and Plan Alcoholic hepatitis Alcohol intoxication and withdrawal on admission Jaundice secondary to above Abdominal pain, right upper quadrant pain from admission better Hyperammonemia Hyperbilirubinemia Transaminitis, alcoholic hepatitis Hepatic steatosis Chronic nicotine use Chronic alcohol use Anxiety GI prophylaxis continue on protonix Plan Fever could be due to the alcoholic hepatitis sepsis workup undergoing Continues on IV vancomycin and IV with ceftriaxone with blood cultures currently pending infectious diseases following this patient closely on oral rifaximin and oral lactulose goal of 4-5 loose bowel movements per day ammonia level is down to 68 Replace potassium Stop normal saline Repeat CMP CBC and ammonia level in the morning If ammonia level continues to improve patient could possibly be discharged in the next 24 hours will need GI follow up outpatient There was mention of gallbladder sludge on imaging and discussed with patient and family needed to see general surgery outpatient for further work up. Add nicotine patch The impression and plan of care has been dictated by Nurse Nabeel Oliveira ctitioner as directed. Dr. Dejuan MD I have performed a history and physical examination and medical decision making of this patient, discussed the same with the dictator, and agree with the dictat ors assessment and plan as written, documented as a scribe. Based on total visit time, I have performed more than 50% of this visit. Objective - Vital Signs Vital signs: Vital Signs Temp 97.4 F L 01/30/24 07:41 Pulse 115 H 01/30/24 07:41 Resp 16 01/30/24 07:41 BP 139/90 01/30/24 07:41 Pulse Ox 96 01/30/24 07:41 FiO2 Intake & Output 01/29/24 01/30/24 01/30/24 18:59 06:59 18:59 Weight 104.326 kg - Labs CBC & Chem 7: 01/30/24 03:00 01/30/24 03:00 Labs: Abnormal Lab Results - Last 24 Hours (Table) 01/30/24 01/30/24 01/30/24 Range/Units 03:00 03:00 03:00 RBC 2.66 L (4.30-5.90) m/uL Hgb 9.9 L (13.0-17.5) gm/dL Hct 29.6 L (39.0-53.0) % MCV 111.3 H (80.0-100.0) fL MCH 37.2 H (25.0-35.0) pg Macrocytosis Marked A Sodium 133 L (137-145) mmol/L Potassium 3.2 L (3.5-5.1) mmol/L Chloride 109 H (98-107) mmol/L Carbon Dioxide 19 L (22-30) mmol/L BUN 3 L (9-20) mg/dL Creatinine 0.50 L (0.66-1.25) mg/dL Glucose 115 H (74-99) mg/dL Calcium 8.2 L (8.4-10.2) mg/dL Total Bilirubin 17.8 H* (0.2-1.3) mg/dL Ammonia 68 H (<30) umol/L Total Protein 6.0 L (6.3-8.2) g/dL Albumin 2.7 L (3.5-5.0) g/dL Assessment and Plan Time with Patient: Less than 30
[2024-01-30] MEDS: NICOTINE 14MG/24HR PATCH TRANSDERM SCH (12:11)
[2024-01-30] MEDS: RIFAXIMIN 550 MG TABLET PO SCH (12:11)
[2024-01-30] MEDS: FOLIC ACID 1 MG TAB PO SCH (12:11)
[2024-01-30] MEDS: PANTOPRAZOLE 40 MG/10 ML VIAL IVP SCH (12:42)
[2024-01-30] MEDS: HYDROmorphone 0.5 MG/0.5 ML SYRINGE IVP PRN (20:42)
--- NOTE | 2024-01-30 20:54 | P.PN ---
Subjective Progress Note Date: 01/30/24 Principal diagnosis: Reason for follow-up is fever Patient is a 28-year-old male with a past medical history significant for alcoholism, presenting the hospital with yellow discoloration of his sclera noticed to be febrile prompted this consultation. On today's evaluation that is 01/30/2024,the patient denies any fever or any chills, patient is breathing comfortably on room air, the patient denies chest pain shortness of breath and no significant cough, patient denies abdominal pain, no nausea vomiting is having loose stool but also getting lactulose. Patient white count 7.3 creatinine 0.50 bilirubin is elevated ALT AST normal Objective - Vital Signs Vital signs: Vital Signs Temp 98.6 F 01/30/24 13:31 Pulse 103 H 01/30/24 13:31 Resp 16 01/30/24 13:31 BP 105/57 01/30/24 13:31 Pulse Ox 96 01/30/24 13:31 FiO2 Intake & Output 01/29/24 01/30/24 01/30/24 18:59 06:59 18:59 Weight 104.326 kg - Exam GENERAL DESCRIPTION: Middle-age male lying in bed in no distress RESPIRATORY SYSTEM: Unlabored breathing , decreased breath sounds at bases HEART: S1 S2 regular rate and rhythm , ABDOMEN: Soft , no tenderness EXTREMITIES: No edema feet - Labs CBC & Chem 7: 01/30/24 03:00 01/30/24 03:00 Labs: Abnormal Lab Results - Last 24 Hours (Table) 01/30/24 01/30/24 01/30/24 Range/Units 03:00 03:00 03:00 RBC 2.66 L (4.30-5.90) m/uL Hgb 9.9 L (13.0-17.5) gm/dL Hct 29.6 L (39.0-53.0) % MCV 111.3 H (80.0-100.0) fL MCH 37.2 H (25.0-35.0) pg Macrocytosis Marked A Sodium 133 L (137-145) mmol/L Potassium 3.2 L (3.5-5.1) mmol/L Chloride 109 H (98-107) mmol/L Carbon Dioxide 19 L (22-30) mmol/L BUN 3 L (9-20) mg/dL Creatinine 0.50 L (0.66-1.25) mg/dL Glucose 115 H (74-99) mg/dL Calcium 8.2 L (8.4-10.2) mg/dL Total Bilirubin 17.8 H* (0.2-1.3) mg/dL Ammonia 68 H (<30) umol/L Total Protein 6.0 L (6.3-8.2) g/dL Albumin 2.7 L (3.5-5.0) g/dL Assessment and Plan (1) Fever Current Visit: Yes Status: Acute Code(s): R50.9 - FEVER, UNSPECIFIED SNOMED Code(s): 736930993 (2) Penicillin allergy Current Visit: Yes Status: Acute Code(s): Z88.0 - ALLERGY STATUS TO PENICILLIN SNOMED Code(s): 21294814 Plan: 1patient is a 28-year-old male with significant alcohol abuse presenting with yellow discoloration of the sclera also have a fever possibly related to alcoholic hepatitis as initial workup has been negative including CT ultrasound chest x-ray UA 2-we did not get the hepatitis panel will be ordered again we will also check a CRP and a procalcitonin 3- for now continue with Rocephin however the culture negative antibiotics can be safely discontinued Dictation was produced using [employer] dictation software. please excuse any gramm atical, word or spelling errors. Time with Patient: Less than 30
[2024-01-31 09:11] LABS: HCT 28.4 % (39.6-50.0); HGB 9.4 g/dL (13.0-17.0); MCH 36.3 pg (27.0-32.0); MCHC 33.1 g/dL (32.0-37.0); MCV 109.7 FL (80.0-97.0); Mean Platelet Volume 9.5 FL (9.5-12.2); NRBC Per 100 WBC 0 X 10*3/uL (0.00-0.01); Platelet Count 303 X 10*3/uL (140-440); RBC 2.59 X 10*6/uL (4.40-5.60); RDW 16.3 % (11.5-14.5); WBC 8.82 X 10*3/uL (4.50-10.00)
[2024-01-31 09:27] LABS: Hepatitis A Antibody IgM Nonreactive (Nonreactive); Hepatitis B Core IgM Nonreactive (Nonreactive); Hepatitis C IgG Antibody Nonreactive (Nonreactive); Procalcitonin 0.29 ng/mL (0.02-0.50)
[2024-01-31 09:30] LABS: BUN/Creat Ratio <7.00 Ratio (12.00-20.00); Blood Urea Nitrogen <3.5 mg/dL (9.0-27.0); Calcium 8.3 mg/dL (8.7-10.3); Carbon Dioxide 20.2 mmol/L (21.6-31.8); Chloride 101 mmol/L (96-109); Glucose 114 mg/dL (70-110); Potassium 3.1 mmol/L (3.5-5.5); Sodium 134 mmol/L (135-145)
[2024-01-31 10:38] LABS: Basophils # (A) 0.09 X 10*3/uL (0.00-0.10); Eosinophils # (A) 0.07 X 10*3/uL (0.04-0.35); Eosinophils % (A) 0.8 %; Lymphocytes % (A) 12.5 %; Macrocytosis (M) 2+; Monocytes # (A) 1.32 X 10*3/uL (0.20-1.00); Neutrophils # (A) 6.03 X 10*3/uL (1.80-7.70); Neutrophils % (A) 68.3 %
[2024-01-31] MEDS: LORazepam 2 MG/ML INJ ONE ×4 (11:22→12:20)
[2024-01-31] MEDS: POTASSIUM CHLORIDE ER 20 MEQ TAB.ER PO ONE ×2 (11:23)
[2024-01-31] MEDS: PANTOPRAZOLE 40 MG/10 ML VIAL ONE (11:23)
[2024-01-31] MEDS: HYDROmorphone 0.5 MG/0.5 ML SYRINGE ONE (11:23)
[2024-01-31] MEDS: LACTULOSE 20 GM/30 ML CUP ONE ×5 (11:23→12:20)
[2024-01-31 14:55] VITALS: BP 116/67; PULSE 101; RESP 16; TEMP 98.4
--- NOTE | 2024-02-01 14:18 | P.PN ---
Subjective Progress Note Date: 01/31/24 Principal diagnosis: Reason for follow-up is fever Patient is a 28-year-old male with a past medical history significant for alcoholism, presenting the hospital with yellow discoloration of his sclera noticed to be febrile prompted this consultation. On today's evaluation that is 01/31/2024,the patient remains to be afebrile, patient is on room air not requiring supplemental oxygen and denies any shortness of breath no chest pain or cough.Patient denies having any nausea or vomiting, no abdominal pain, patient mention feeling better wants to go home. Patient white count is 8.82, creatinine 0.5 hepatitis panel negative blood culture has been negative so far Objective - Vital Signs Vital signs: Vital Signs Temp 99.6 F 01/31/24 07:35 Pulse 118 H 01/31/24 07:35 Resp 17 01/31/24 07:35 BP 125/77 01/31/24 07:35 Pulse Ox 97 01/31/24 07:35 FiO2 Intake & Output 01/30/24 01/31/24 01/31/24 18:59 06:59 18:59 Intake Total 200 Balance 200 Intake: Oral 200 Other: Voiding Method Toilet # Voids 5 2 2 # Bowel Movements 4 - Exam GENERAL DESCRIPTION: Middle-age male lying in bed in no distress RESPIRATORY SYSTEM: Unlabored breathing , decreased breath sounds at bases HEART: S1 S2 regular rate and rhythm , ABDOMEN: Soft , no tenderness EXTREMITIES: No edema feet - Labs CBC & Chem 7: 01/31/24 06:00 01/31/24 06:00 Labs: Abnormal Lab Results - Last 24 Hours (Table) 01/31/24 01/31/24 01/31/24 Range/Units 06:00 06:00 06:00 RBC 2.59 L (4.40-5.60) X 10*6/uL Hgb 9.4 L (13.0-17.0) g/dL Hct 28.4 L (39.6-50.0) % MCV 109.7 H (80.0-97.0) FL MCH 36.3 H (27.0-32.0) pg RDW 16.3 H (11.5-14.5) % Immature Gran # 0.21 H (0.00-0.04) X 10*3/uL Monocytes # 1.32 H (0.20-1.00) X 10*3/uL Macrocytosis (manual) 2+ A Sodium 134 L (135-145) mmol/L Potassium 3.1 L (3.5-5.5) mmol/L Carbon Dioxide 20.2 L (21.6-31.8) mmol/L Anion Gap 12.80 H (4.00-12.00) mmol/L BUN <3.5 L (9.0-27.0) mg/dL Creatinine 0.5 L (0.6-1.5) mg/dL BUN/Creatinine Ratio <7.00 L (12.00-20.00) Ratio Glucose 114 H (70-110) mg/dL Calcium 8.3 L (8.7-10.3) mg/dL Ammonia 69 H (<30) umol/L C-Reactive Protein 12.30 H (0.00-0.80) mg/dL Assessment and Plan (1) Fever Status: Acute Code(s): R50.9 - FEVER, UNSPECIFIED SNOMED Code(s): 619865776 (2) Penicillin allergy Status: Acute Code(s): Z88.0 - ALLERGY STATUS TO PENICILLIN SNOMED Code(s): 87003260 Plan: 1patient is a 28-year-old male with significant alcohol abuse presenting with yellow discoloration of the sclera also have a fever possibly related to alcoholic hepatitis as initial workup has been negative including CT ultrasound chest x-ray UA 2-hepatitis panel has been negative blood culture negative so far with no clear focus of infection received adequate Rocephin and no need for antibiotic on discharge this was discussed with METAL SANDER AND FINISHER for admitting team working on discharge Dictation was produced using [employer] dictation software. please excuse any grammatical, word or spelling errors. Time with Patient: Less than 30
[2024-02-01 18:04] LABS: Hepatitis B Surface Antigen Nonreactive (Nonreactive)
--- NOTE | 2024-02-09 05:48 | P.DS ---
Providers Date of admission: 01/23/24 18:07 Expected date of discharge: 01/31/24 Attending physician: Leonel Vegas MD Consults: 01/29/24 18:58 Consult Physician Routine Consulting Provider: Carmela Narvaez Consult Reason/Comments: abd pain, fever Do you want consulting provider notified?: Already Contacted Consult Physician Routine Consulting Provider: Alicia Nava Consult Reason/Comments: jaundice Do you want consulting provider notified?: Already Contacted Primary care physician: Stated None Hospital Course: Final diagnosis Alcoholic hepatitis Alcohol intoxication and withdrawal on admission Jaundice secondary to above Abdominal pain, right upper quadrant pain from admission better Hyperammonemia Hyperbilirubinemia Transaminitis, alcoholic hepatitis Hepatic steatosis Chronic nicotine use Chronic alcohol use Anxiety GI prophylaxis continue on protonix Discharge disposition Patient is being discharged in a stable condition with guarded prognosis to [facility]. Patient will follow-up with primary care provider in the outpatient setting upon discharge. Patient is to continue with complete alcohol abstinence and strongly recommend inpatient alcohol rehab on discharge. Patient to follow- up with GI outpatient. Total time taken is greater than 35 minutes. Hospital course This is a 28-year-old male who was recently admitted with acute alcohol withdr awal with early delirium tremens, alcoholic hepatitis with jaundice and some abdominal pain. Patient evaluated by GI along with infectious disease as patient did have abdominal pain and fevers with elevated white count. Infection ruled out patient monitored closely off antibiotic therapy and doing well. Patient to follow-up with GI outpatient. Patient was maintained on CIWA protocol and not actively withdrawing at this time. Patient has been instructed to follow-up with inpatient alcohol rehab. Please refer to other consultation notes for further HPI. Currently no reports of chest pain, shortness of breath, or palpitations. Patient is afebrile. No reports of nausea or vomiting and patient is tolerating diet. Patient will be discharged home today. High risk for readmissions given patient's continued use of alcohol Physical exam: Gen: This is a 28-year-old male who is awake, alert and oriented x 3, well- developed, well-nourished, obese HEENT: Head is atraumatic, normocephalic. Pupils equal, round. Sclerae is anicteric. Jaundice noted of sclera NECK: Supple. No JVD. No lymphadenopathy. No thyromegaly. LUNGS: Clear to auscultation. No wheezes or rhonchi. No intercostal retractions. HEART: Regular rate and rhythm. No murmur. ABDOMEN: Soft. Obese. Bowel sounds are present. No masses. No tenderness. EXTREMITIES: No pedal edema. No calf tenderness. NEUROLOGICAL: Patient is awake, alert and oriented x3. Cranial nerves 2 through 12 are grossly intact. Skin: Jaundice Please refer to medication reconciliation sheet for a list of medications. The impression and plan of care has been dictated by Gwendolyn Curran, Nurse Practitioner as directed. Dr. Dejuan MD I have performed a history and examination and MDM of this patient, discussed the same with the dictator, and agree with the dictator's assessment and plan as written ,documented as a scribe. Based on total visit time, I have performed more than 50% of the visit. Patient Condition at Discharge: Fair Plan - Discharge Summary New Discharge Prescriptions: New Lactulose [Cephulac] 30 gm PO BID PRN ml PRN Reason: ELEVATED AMMONIA Multivitamins, Thera [Multivitamin (formulary)] 1 each PO DAILY #30 tab Thiamine [Vitamin B-1] 100 mg PO BID #60 tab Rifaximin [Xifaxan] 550 mg PO BID #60 tab Lactulose [Cephulac] 30 gm PO TID #480 ml Folic Acid 1 mg PO DAILY@1200 #30 tab Magnesium Oxide [Mag-Ox] 400 mg PO DAILY #30 tab Continue HYDROcodone/APAP 7.5-325MG [[place] 7.5-325] 1 - 2 tab PO Q6H PRN #32 tab PRN Reason: Pain HYDROcodone/APAP 7.5-325MG [[place] 7.5-325] 1 - 2 tab PO Q6H PRN #32 tab PRN Reason: Pain Sennosides [Senokot] 2 tab PO DAILY PRN #60 tablet PRN Reason: Constipation Ondansetron Odt [Zofran ODT] 1 tab PO Q8HR PRN #10 tab PRN Reason: Nausea Discontinued Aspirin 325 mg PO BID #60 tab Celecoxib [CeleBREX] 200 mg PO DAILY 5 Days #5 capsule Gabapentin 300 mg PO BID 5 Days #10 cap Discharge Medication List HYDROcodone/APAP 7.5-325MG [[place] 7.5-325] 1 - 2 tab PO Q6H PRN #32 tab 06/17/20 [Rx] HYDROcodone/APAP 7.5-325MG [[place] 7.5-325] 1 - 2 tab PO Q6H PRN #32 tab 08/13/20 [Rx] Ondansetron Odt [Zofran ODT] 1 tab PO Q8HR PRN #10 tab 08/13/20 [Rx] Sennosides [Senokot] 2 tab PO DAILY PRN #60 tablet 08/13/20 [Rx] Folic Acid 1 mg PO DAILY@1200 #30 tab 01/31/24 [Rx] Lactulose [Cephulac] 30 gm PO BID PRN ml 01/31/24 [Rx] Lactulose [Cephulac] 30 gm PO TID #480 ml 01/31/24 [Rx] Magnesium Oxide [Mag-Ox] 400 mg PO DAILY #30 tab 01/31/24 [Rx] Multivitamins, Thera [Multivitamin (formulary)] 1 each PO DAILY #30 tab 01/31/24 [Rx] Rifaximin [Xifaxan] 550 mg PO BID #60 tab 01/31/24 [Rx] Thiamine [Vitamin B-1] 100 mg PO BID #60 tab 01/31/24 [Rx] Follow up Appointment(s)/Referral(s): Alicia Nava MD [STAFF PHYSICIAN] - 1 Week (Office was not answering at time of discharge. Please call for follow-up appointment.) [facility] [NON-STAFF] - 02/01/24 11:30 am Ambulatory/Diagnostic Orders: Comprehensive Metabolic Panel [LAB.AMB] Time Frame: 3 Days, Location: None Selected Patient Instructions/Handouts: Alcohol Withdrawal (DC) Activity/Diet/Wound Care/Special Instructions: Activity limited until follow-up Follow-up with GI Dr. Baires outpatient Follow-up with primary care provider outpatient Strongly recommend inpatient alcohol rehab and follow-up with [place] Avoid all alcohol intake and exposure to Continue with lactulose at least 2-3 times daily for 2-3 bowel movements daily Repeat labs in 2 to 3 days Discharge/Stand Alone Forms: Area PCPs Discharge Disposition: HOME SELF-CARE
--- NOTE | 2024-02-14 17:20 | CT ---
Patient Brad Farooq ID [id number] Order # EXAMINATION TYPE: CT abdomen pelvis w con DATE OF EXAM: 01/23/2024 COMPARISON: No comparison available on downtime PACS. INDICATION: Lower abdominal pain, jaundice DLP: 1878.2 mGycm, Automated exposure control for dose reduction was used. CONTRAST: 100 mL of Isovue 300. Study performed without Oral Contrast TECHNIQUE: Axial images were obtained from above the diaphragm to the pubic rami in the axial plane a t 5 mm thick sections. Reconstructed images are reviewed on the computer in the coronal plane. FINDINGS: Limited CT sections are obtained the lung bases. The lung bases are clear. CT ABDOMEN: Liver: Diffuse fatty infiltration of the liver. No discrete masses are evident. No biliary dilatation is evident. Liver is enlarged measuring 26.4 cm. Normal less than 15.5 cm. Spleen: Normal Pancreas: Normal Adrenal glands: The adrenal glands are normal. Gallbladder: Normal Kidneys: No masses are evident. No hydronephrosis is present. No cysts are present. Delayed images were obtained through the kidneys, which remain unremarkable. Aorta: Normal Inferior vena cava: Normal. CT PELVIS: Diffuse wall thickening to the transverse and ascending colon is not excluded. Consider colitis. This extends more prominently into the sigmoid colon. Inflammatory changes appear to be present within th e cecum. Some inflammatory changes are in the right lower quadrant. There appears to be the appendix is normal. Studies is without oral contrast limiting evaluation. No free air is evident. No abscess f ormation identified. Appendix: Normal as visualized. Urinary bladder: Limited due to Beam hardening artifact from bilateral hip prostheses. Genitourinary structures: Prostate is not identified and may be obscured by the beam hardening artifa ct from hip prostheses. Osseous structures: No suspicious lytic or sclerotic lesions. IMPRESSION: 1. Mild wall thickening throughout the colon. This appears more irregular with inflammatory changes within the cecum but extensively entire colon to the rectum correlate for colitis. The appendix as vi sualized appears normal. 2. Marked hepatomegaly with fatty infiltration of the liver.
--- NOTE | 2024-02-22 10:16 | XR ---
Patient Brad Gann T ID [id number] Age 23 years Gender M Order # [id number] EXAMINATION TYPE: XR chest 2V DATE OF EXAM: 01/24/2024 COMPARISON: 11/09/2019 INDICATION: Fever, RSV TECHNIQUE: Frontal and lateral views of the chest are obtained. FINDINGS: The heart size is normal. The pulmonary vasculature is normal. The lungs are clear. IMPRESSION: 1. No acute pulmonary process.
--- NOTE | 2024-02-22 18:36 | US ---
Patient Sanjuanita, Brad ID [id number] Age/Gender: 28Y, M Order # [id number] Procedure US ABD LIMITED Date 01/24/2024 12:05:43 AM Reason N/A EXAMINATION TYPE: US abdomen complete DATE OF EXAM: 01/25/2024 COMPARISON: NONE CLINICAL INDICATION: Unknown, old with history of ; TECHNIQUE: Multiple sonographic images of the right upper quadrant are obtained. FINDINGS: EXAM MEASUREMENTS: Liver Length: 24.9 cm Gallbladder Wall: 0.2 cm CBD: 0.5 cm Right Kidney: 11.6 cm in length cm LATHING SUPERVISOR NOTES: Pancreas: wnl Liver: Coarse appearance Gallbladder: wnl Evidence for sonographic Cottrell's sign: CBD: wnl Right Kidney: wnl IMPRESSION: Probable hepatic steatosis with hepatomegaly.
--- NOTE | 2024-03-08 12:18 | PN ---
PROGRESS NOTE DATE OF SERVICE: 01/28/2024 LOCATION: 457. REASON FOR FOLLOWUP: Fever. INTERVAL HISTORY: The patient did have resolution of his fever and is afebrile today. The patient denies having any chest pain. No shortness of breath or cough. His abdominal pain has resolved. No nausea, vomiting or diarrhea. PHYSICAL EXAMINATION: VITAL SIGNS: Blood pressure 112/62, with a pulse of 130. Temperature 98.7. He is 98% on room air. GENERAL DESCRIPTION: This is a middle-aged male, lying in bed in no distress. HEENT EXAMINATION: Scleral icterus positive. LUNGS: Unlabored breathing. Clear to auscultation anteriorly. HEART: S1, S2. Regular rate and rhythm. ABDOMEN: Soft, no tenderness. LABORATORY DATA: White count is 2.7. Creatinine 0.79. Cultures are currently pending. DIAGNOSTIC IMPRESSION: The patient with fever, possibly related to his alcoholic hepatitis. The patient did have extensive workup including CT of abdomen and pelvis, ultrasound, UA, chest x-ray that have been negative. The patient is to continue with vancomycin and Rocephin while waiting for the cultures to finalize and monitor clinical course closely. MMODL / IJN: [id number] /
--- NOTE | 2024-03-08 12:18 | PN ---
PROGRESS NOTE DATE OF SERVICE: 01/27/2024 LOCATION: 457. REASON FOR FOLLOWUP: Fever. INTERVAL HISTORY: The patient is afebrile today. He is breathing comfortably. The patient denies having any chest pain. No shortness of breath, or cough. Mild nausea, but no vomiting. Abdominal pain has decreased in intensity. No diarrhea. PHYSICAL EXAMINATION: VITAL SIGNS: Blood pressure 135/83, pulse of 150, temperature 98.3. He is 96% on room air. GENERAL DESCRIPTION: This is a middle-aged male, lying in bed, in no distress. RESPIRATORY SYSTEM: Unlabored breathing. Decreased intensity of breath sounds. No wheeze. HEART: S1, S2. Regular rate and rhythm. ABDOMEN: Soft, mildly distended. No rigidity. EXTREMITIES: No edema of the feet. LABORATORY DATA: Creatinine 0.5, white count 8.9. Influenza and COVID testing was negative. Chest x- ray reportedly negative. DIAGNOSTIC IMPRESSION AND PLAN: The patient with fever, questionably to his alcoholic hepatitis. Currently waiting for hepatitis panel and blood cultures. He is on Rocephin and vanc, to continue and monitor clinical course closely. MMODL / IJN: [id number] /
--- NOTE | 2024-03-08 12:25 | PN ---
PROGRESS NOTE DATE OF SERVICE: 01/29/2024 LOCATION: 457. REASON FOR FOLLOWUP: Fever. INTERVAL HISTORY: Patient's overall fever pattern has improved. Has been running a low-grade fever of 99.6. The patient has no chest pain. No shortness of breath. He did have some cough and dry heave. No vomiting. No abdominal pain. No diarrhea. PHYSICAL EXAMINATION: VITAL SIGNS: Blood pressure 102/61, pulse of 110, temperature 99.6. He is 97% on room air. GENERAL DESCRIPTION: This is a middle-aged male, lying in bed, in no distress. RESPIRATORY SYSTEM: Unlabored breathing. Clear to auscultation anteriorly. HEART: S1, S2. Regular rate and rhythm. ABDOMEN: Soft, distended. No guarding or rigidity. EXTREMITIES: No edema of the feet. LABORATORY DATA: White count 7.31, creatinine 0.9. DIAGNOSTIC IMPRESSION AND PLAN: Patient with a fever, possibly related to alcoholic hepatitis. He did have initial workup with a CT, ultrasound, negative for any other abdominal pathology. Chest x-ray negative. Urine is negative. The patient is placed on empiric Rocephin while waiting for the culture to finalize. His questions and concerns were answered. MMODL / IJN: [id number] /
--- NOTE | 2024-03-08 13:31 | CONS ---
CONSULTATION HISTORY OF PRESENT ILLNESS: The patient is a 28-year-old male with a past medical history significant for alcoholism and this patient has been a heavy drinker, also with a history of avascular necrosis of the hip, status post bilateral hip replacement and surgical correction of the clubfoot, right, presenting to the hospital for evaluation of worsening discoloration to bilateral sclera eyes and lower abdominal pain. The patient's symptom has been getting worse for about 2 weeks. The patient mentioned to have a fever at home and he will take a drink. He will have a cough and the fever will go away. The patient is also complaining of some headache, but no photophobia or URI symptoms. Denies any chest pain or shortness of breath. He did have a cough, mild to moderate, not bringing up any sputum. Some nausea, but denies having any vomiting or abdominal distention, lower abdominal pain, mostly dull, aching, mild to moderate in intensity without radiation. Denies having any diarrhea. No joint swelling or leg redness. With these symptoms, the patient has been evaluated. The patient did have fever of 101 degrees Fahrenheit prompting this consultation. REVIEW OF SYSTEMS: Positive points have been mentioned in HPI. Rest of systems are negative. PAST MEDICAL HISTORY: As mentioned above. PAST SURGICAL HISTORY: As mentioned above. SOCIAL HISTORY: Positive for heavy drinking. Denies any drug use. FAMILY HISTORY: No pertinent findings were noticed. ALLERGIES: To penicillin with a rash. MEDICATIONS: Currently include the patient is on Ativan per CIWA pathway. He is getting b.i.d., thiamine, multivitamin, Protonix, Tylenol, morphine, Zofran, Dilaudid. PHYSICAL EXAMINATION: VITAL SIGNS: Blood pressure is 113/68 with a pulse of 117, temperature 98.2. He did have a temperature of 101 degrees Fahrenheit on presented to the hospital. He is currently 97% on room air. GENERAL DESCRIPTION: This is a middle-aged male, lying in bed, in no distress. No tachypnea or accessory muscle of respiration use. HEENT: Scleral icterus is positive. Oral mucous membrane is moist. NECK: Trachea central. No thyromegaly. LUNGS: Unlabored breathing. Coarse breath sounds bilaterally. No wheeze or crackles. HEART: S1, S2. Regular rate and rhythm. ABDOMEN: Soft, distended. No guarding. No rigidity. EXTREMITIES: No edema in the feet. SKIN: No rash or mass palpable. NEUROLOGIC: The patient is awake, alert, and oriented x3. No signs of meningeal irritation. LABORATORY DATA: BUN , creatinine 0.49. AST is 75, ALT is 21. Total bilirubin is 15.4, hemoglobin is 10.4, white count 8.09. Ammonia level was 66. UA was negative. Urine drug screen was positive for THC and opiates. The patient did have an ultrasound of the abdomen and pancreas within normal limits the gallbladder within normal limits. CBD was normal. The patient also had a CT of abdomen and pelvis, hepatomegaly with hepatic steatosis. No evidence for choledocholithiasis or cholelithiasis. DIAGNOSTIC IMPRESSION AND PLAN: The patient presented to hospital with yellow discoloration of his clear abdominal pain and distention in this patient with history of heavy drinking, noticed to be jaundice. IMAGING STUDIES: CT of abdomen and pelvis did show hepatic steatosis, but no evidence of any pancreatitis or CBD stone or cholecystitis. Chest x-ray has been negative. UA was negative. The source of the fever could be related to his hepatitis from his alcoholism. Other etiologies not entirely excluded. 1. We will check hepatitis serology and we will also check COVID-19 and influenza swab. 2. We will check a procalcitonin and CRP level. 3. We will add Rocephin empirically while waiting for the workup to be completed. 4. We will follow on clinical condition and culture to further adjust medication if needed. Thank you for this consultation. We will follow this patient along with you. MMODL / IJN: [id number] /
== END 2024-01-31 14:36 | disposition home or self-care (01) | DRG 280 ==
LOC: 4SSUR 03:43 → UNDOADMIN 03:43 → 4SSUR 18:07 → UNDODISIN 01-31 14:36
PROVIDERS: ADMIT Internal Medicine; ATTEND Internal Medicine
DX: K70.10 Alcoholic hepatitis without ascites (principal); A41.9 Sepsis, unspecified organism; F10.231 Alcohol dependence with withdrawal delirium; E72.20 Disorder of urea cycle metabolism, unspecified; K76.0 Fatty (change of) liver, not elsewhere classified; F41.9 Anxiety disorder, unspecified; F10.229 Alcohol dependence with intoxication, unspecified; Z88.0 Allergy status to penicillin; Z96.643 Presence of artificial hip joint, bilateral; Y90.6 Blood alcohol level of 120-199 mg/100 ml; E80.6 Other disorders of bilirubin metabolism; F17.200 Nicotine dependence, unspecified, uncomplicated
CPT/HCPCS: 71046; 74176; 76705; 80048; 80053; 80074; 82140; 83735; 84145; 85025; 86140; 87040; 87077; 87186; 93005; 96361; 96374; 96375; 96376; 99285

== ENCOUNTER 2024-03-06 20:51 | Inpatient (IN) | payer OTHER ==
--- NOTE | 2024-03-06 21:11 | ED ---
General Adult HPI - General Chief complaint: Recheck/Abnormal Lab/Rx Stated complaint: Abnormal Labs-sent by Dr Nava Time Seen by Provider: 03/06/24 21:09 Source: patient Mode of arrival: ambulatory Limitations: no limitations - History of Present Illness Initial comments: Patient is a 28-year-old male with past medical history of alcoholism, currently in remission, alcoholic liver cirrhosis presenting today for hyperglycemia. Patient states he was recently admitted for delirium tremens and alcoholic liver cirrhosis which resulted in transfer to [facility]. Ever since discharge she has had dull lower abdominal pain across the lower aspect of his abdomen. He is following with Dr. Baires of gastroenterology who ordered outpatient labs. Patient was noted to have a blood glucose of 900 on outpatient labs yesterday so was directed to come to the emergency department. Patient mother states that the patient has been more forgetful than normal lately otherwise patient is at baseline. He states that he denies any changes in vision, urinary frequency. Does endorse increased thirst. No recent fevers. No nausea or vomiting. No chest pain or shortness of breath. No black or bloody stools. Is currently taking lactulose. No family history of personal history of diabetes. - Related Data Home Medications Medication Instructions Recorded Confirmed Rifaximin [Xifaxan] 550 mg PO DIRECTED 03/07/24 03/07/24 Previous Rx's Medication Instructions Recorded Folic Acid 1 mg PO DAILY@1200 #30 tab 01/31/24 Lactulose [Cephulac] 30 gm PO TID #480 ml 01/31/24 Magnesium Oxide [Mag-Ox] 400 mg PO DAILY #30 tab 01/31/24 Multivitamins, Thera [Multivitamin 1 each PO DAILY #30 tab 01/31/24 (formulary)] Thiamine [Vitamin B-1] 100 mg PO BID #60 tab 01/31/24 Allergies Allergy/AdvReac Type Severity Reaction Status Date / Time Penicillins Allergy Rash/Hives Verified 03/07/24 09:55 tramadol AdvReac "Don't Verified 03/07/24 09:[address] it makes me feel." Review of Systems ROS Statement: Those systems with pertinent positive or pertinent negative responses have been documented in the HPI. ROS Other: All systems not noted in ROS Statement are negative. Past Medical History Past Medical History: GERD/Reflux Additional Past Medical History / Comment(s): "inflamed colon", enlarged liver, avascular necrosis rt hip-uses a cane History of Any Multi-Drug Resistant Organisms: None Reported Past Surgical History: Orthopedic Surgery Additional Past Surgical History / Comment(s): club foot surgery rt foot Past Anesthesia/Blood Transfusion Reactions: No Reported Reaction Past Psychological History: Anxiety, Depression Smoking Status: Current every day smoker Past Alcohol Use History: None Reported Past Drug Use History: None Reported - Past Family History Mother Family Medical History: No Reported History General Exam - General Exam Comments Initial Comments: PE: CONSTITUTIONAL: No apparent distress, well appearing SKIN: Warm, dry, mildly jaundiced hives or petechiae EYES: Pupils are equally round, extraocular movements intact without nystagmus, clear conjunctiva, mild scleral icterus HENT: Normocephalic, atraumatic, dry mucus membranes, oropharynx clear without exudates NECK: , Full range of motion, normal appearance PULMONARY: Clear to auscultation without wheezes, rhonchi, or rales, normal excursion, no accessory muscle use and no stridor CARDIOVASCULAR: Tachycardia, regular rhythm normal S1 and S2. No appreciated murmurs, rubs or gallops. Extremities are pink and well-perfused no lower extremity edema GASTROINTESTINAL: Soft, non-tender, non-distended, no palpable masses, no rebound or guarding. Hepatomegaly noted MUSCULOSKELETAL: Extremities have no gross deformity, no edema, redness, or swelling. NEUROLOGIC:_a/o x 3, GCS 15, normal mentation and speech. Moves all extremities x 4 without motor or sensory deficit PSYCHIATRIC:_normal mood and affect, thought process is clear and linear Limitations: no limitations Course Vital Signs 03/06/24 03/06/24 03/07/24 20:54 23:50 00:00 Temperature 98.1 F 98.6 F Pulse Rate 126 H 96 Respiratory 16 16 18 Rate Blood Pressure 142/88 120/88 Blood Pressure 124/78 [Left Arm] O2 Sat by Pulse 99 100 99 Oximetry 03/07/24 00:34 Temperature 98.1 F Pulse Rate 86 Respiratory 18 Rate Blood Pressure 132/79 Blood Pressure [Left Arm] O2 Sat by Pulse Oximetry Medical Decision Making - Medical Decision Making Reviewed discharge summary from recent admission on 01/23/2024 where patient was admitted for delirium tremens and alcoholic hepatitis. Was pt. sent in by a medical professional or institution (LANCE Tucker, PROGRESSIVE DIE MAKER, urgent care, hospital, or jail...) When possible be specific @ -No Did you speak to anyone other than the patient for history (EMS, parent, family, police, friend...)? What history was obtained from this source @ -No Did you review nursing and triage notes (agree or disagree)? Why? @ -I reviewed and agree with nursing and triage notes-patient's triage note, patient was sent in by Dr. Baires for blood alcohol greater than 900 and concern for new onset diabetes/DKA Were old charts reviewed (outside hosp., previous admission, EMS record, old EKG, old radiological studies, urgent care reports/EKG's, jail records)? Report findings @ -See above Differential Diagnosis (chest pain, altered mental status, abdominal pain women, abdominal pain men, vaginal bleeding, weakness, fever, dyspnea, syncope, headache, dizziness, GI bleed, back pain, seizure, CVA, palpatations, mental health, musculoskeletal)? @Differential diagnosis is broad however top considerations include alcoholic ketoacidosis, starvation ketosis, DKA, hyperglycemia this is not inclusive list EKG interpreted by me (3pts min.). @Sinus tachycardia, rate 110 bpm, MD interval 120 ms, QRS duration 90 ms, QT/QTc 347/412 ms, normal axis, T wave inversion in lead III, no peaked T waves, no arrhythmia no ST elevations or depressions X-rays interpreted by me (1pt min.). @ -None done CT interpreted by me (1pt min.). @ -None done U/S interpreted by me (1pt. min.). @ -None done What testing was considered but not performed or refused? (CT, X-rays, U/S, labs)? Why? @ -None What meds were considered but not given or refused? Why? @ -None Did you discuss the management of the patient with other professionals (professionals i.e. LANCE Tucker, PROGRESSIVE DIE MAKER, lab, RT, psych nurse, medical social worker, boom crane operator, teacher, coastal/harbor defense officer, foster care case manager)? Give summary @ -No Was smoking cessation discussed for >3mins.? @ -No Was critical care preformed (if so, how long)? @ -Yes, 35 minutes Were there social determinants of health that impacted care today? How? (Homelessness, low income, unemployed, alcoholism, drug addiction, transportation, low edu. Level, literacy, decrease access to med. care, correction, rehab)? @ -No Was there de-escalation of care discussed even if they declined (Discuss DNR or withdrawal of care, Hospice)? @ -No What co-morbidities impacted this encounter? (DM, HTN, Smoking, COPD, CAD, Cancer, CVA, ARF, Chemo, Hep., AIDS, mental health diagnosis, sleep apnea, morbid obesity)? @ -Alcoholism, liver cirrhosis Was patient admitted / discharged? Hospital course, mention meds given and r oute, prescriptions, significant lab abnormalities, going to OR and other pertinent info. @ -Hospital course admission Patient is a pleasant 28-year-old gentleman past medical history of alcoholism, now in remission, alcoholic liver cirrhosis presenting today for hyperglycemia noted on outpatient labs. Patient essentially asymptomatic for signs of DKA. My assessment patient overall well-appearing mild scleral icterus and jaundice, hepatomegaly noted, otherwise abdomen soft and nontender. He is not having any episodes emesis. DKA labs ordered. Discussed with patient plan for IV fluids, anticipate admission. Patient is agreeable with plan. Labs reviewed, significant for hemoglobin 11.7 labs reviewed, hemoglobin 11.7, similar to prior last visit 826/24 was 9.4 significant consistent with macrocytic anemia, sodium 117 however corrected is likely approximately 137, blood glucose 1246, anion gap 15, bicarb 19,'s pCO2 32, chloride 85, total bilirubin 3.0, AST 57, ALT 72, alkaline phosphatase 189 4+ glucose negative ketones, negative acetone Ordered maintenance fluids, DKA order set including insulin bolus and insulin drip per bag. Updated patient to findings and plan of care. Patient agreeable with plan Discussed with Dr. Mcmahan. [facility] physicians. Kindly accepts for admission. Patient admitted in stable condition I was informed by warehouse attendant patient requires ICU admission. Discussed with ITZEL Be with critical care team. He kindly agreed to evaluate patient. ICU orders placed. Undiagnosed new problem with uncertain prognosis? @ -No Drug Therapy requiring intensive monitoring for toxicity (Heparin, Nitro, Insulin, Cardizem)? @Insulin drip Were any procedures done? @ -No Diagnosis/symptom? @HHS Acute, or Chronic, or Acute on Chronic? @Acute Uncomplicated (without systemic symptoms) or Complicated (systemic symptoms)? @ -Complicated Side effects of treatment? @ -No Exacerbation, Progression, or Severe Exacerbation? @ -No Poses a threat to life or bodily function? How? (Chest pain, USA, NC, pneumonia, PE, COPD, DKA, ARF, appy, cholecystitis, CVA, Diverticulitis, Homicidal, Suicidal, threat to staff... and all critical care pts) @Yes - Lab Data Result diagrams: 03/06/24 21:16 03/08/24 04:54 Lab Results 03/06/24 03/06/24 03/06/24 Range/Units 21:16 21:16 21:16 WBC 6.0 (3.8-10.6) k/uL RBC 3.43 L (4.30-5.90) m/uL Hgb 11.7 L (13.0-17.5) gm/dL Hct 36.6 L (39.0-53.0) % MCV 106.6 H (80.0-100.0) fL MCH 34.1 (25.0-35.0) pg MCHC 32.0 (31.0-37.0) g/dL RDW 13.3 (11.5-15.5) % Plt Count 139 L D (150-450) k/uL MPV 7.4 Neutrophils % 86 % Lymphocytes % 8 % Monocytes % 4 % Eosinophils % 0 % Basophils % 0 % Neutrophils # 5.1 (1.3-7.7) k/uL Lymphocytes # 0.5 L (1.0-4.8) k/uL Monocytes # 0.3 (0-1.0) k/uL Eosinophils # 0.0 (0-0.7) k/uL Basophils # 0.0 (0-0.2) k/uL Hypochromasia Moderate Macrocytosis Moderate PT (10.0-12.5) sec INR (<1.2) APTT (22.0-30.0) sec VBG pH (7.31-7.41) VBG pCO2 (37-51) mmHg VBG HCO3 (24-28) mmol/L Sodium 117 L* (137-145) mmol/L Potassium 4.6 (3.5-5.1) mmol/L Chloride 85 L (98-107) mmol/L Carbon Dioxide 15 L (22-30) mmol/L Anion Gap 17 mmol/L BUN <2 L (9-20) mg/dL Creatinine 0.53 L (0.66-1.25) mg/dL Est GFR (CKD-EPI)AfAm >90 (>60 ml/min/1.73 sqM) Est GFR (CKD-EPI)NonAf >90 (>60 ml/min/1.73 sqM) Glucose 1246 H* (74-99) mg/dL Calcium 9.4 (8.4-10.2) mg/dL Ionized Calcium Ehsan 4.7 (4.5-5.3) mg/dL Phosphorus 4.1 (2.5-4.5) mg/dL Magnesium 1.9 (1.6-2.3) mg/dL Total Bilirubin 3.0 H (0.2-1.3) mg/dL AST 57 (17-59) U/L ALT 72 H (4-49) U/L Alkaline Phosphatase 189 H (38-126) U/L Total Protein 6.7 (6.3-8.2) g/dL Albumin 4.2 (3.5-5.0) g/dL Amylase 42 (30-110) U/L Lipase 76 (23-300) U/L Urine Color Colorless Urine Appearance Clear (Clear) Urine pH 5.5 (5.0-8.0) Ur Specific [place] 1.028 (1.001-1.035) Urine Protein Negative (Negative) Urine Glucose (UA) 4+ H (Negative) Urine Ketones Negative (Negative) Urine Blood Negative (Negative) Urine Nitrite Negative (Negative) Urine Bilirubin Negative (Negative) Urine Urobilinogen <2.0 (<2.0) mg/dL Ur Leukocyte Esterase Negative (Negative) Acetone, Qual Negative (Negative) 03/06/24 03/06/24 Range/Units 21:16 21:16 WBC (3.8-10.6) k/uL RBC (4.30-5.90) m/uL Hgb (13.0-17.5) gm/dL Hct (39.0-53.0) % MCV (80.0-100.0) fL MCH (25.0-35.0) pg MCHC (31.0-37.0) g/dL RDW (11.5-15.5) % Plt Count (150-450) k/uL MPV Neutrophils % % Lymphocytes % % Monocytes % % Eosinophils % % Basophils % % Neutrophils # (1.3-7.7) k/uL Lymphocytes # (1.0-4.8) k/uL Monocytes # (0-1.0) k/uL Eosinophils # (0-0.7) k/uL Basophils # (0-0.2) k/uL Hypochromasia Macrocytosis PT 12.7 H (10.0-12.5) sec INR 1.2 H (<1.2) APTT 27.2 (22.0-30.0) sec VBG pH 7.39 (7.31-7.41) VBG pCO2 32 L (37-51) mmHg VBG HCO3 19 L (24-28) mmol/L Sodium (137-145) mmol/L Potassium (3.5-5.1) mmol/L Chloride (98-107) mmol/L Carbon Dioxide (22-30) mmol/L Anion Gap mmol/L BUN (9-20) mg/dL Creatinine (0.66-1.25) mg/dL Est GFR (CKD-EPI)AfAm (>60 ml/min/1.73 sqM) Est GFR (CKD-EPI)NonAf (>60 ml/min/1.73 sqM) Glucose (74-99) mg/dL Calcium (8.4-10.2) mg/dL Ionized Calcium Ehsan (4.5-5.3) mg/dL Phosphorus (2.5-4.5) mg/dL Magnesium (1.6-2.3) mg/dL Total Bilirubin (0.2-1.3) mg/dL AST (17-59) U/L ALT (4-49) U/L Alkaline Phosphatase (38-126) U/L Total Protein (6.3-8.2) g/dL Albumin (3.5-5.0) g/dL Amylase (30-110) U/L Lipase (23-300) U/L Urine Color Urine Appearance (Clear) Urine pH (5.0-8.0) Ur Specific [place] (1.001-1.035) Urine Protein (Negative) Urine Glucose (UA) (Negative) Urine Ketones (Negative) Urine Blood (Negative) Urine Nitrite (Negative) Urine Bilirubin (Negative) Urine Urobilinogen (<2.0) mg/dL Ur Leukocyte Esterase (Negative) Acetone, Qual (Negative) Disposition Clinical Impression: Hyperosmolar hyperglycemic state (HHS) Disposition: ADMITTED IP TO THIS HOSP Condition: Good
[2024-03-06 21:26] LABS: Appearance,Urine Clear (Clear); Basophils % (A) 0 %; Bilirubin,Urine Negative (Negative); Blood,Urine Negative (Negative); Color,Urine Colorless; Eosinophils % (A) 0 %; Glucose,Urine (UA) 4+ (Negative); HCT 36.6 % (39.0-53.0); HGB 11.7 gm/dL (13.0-17.5); Hypochromasia Moderate; Ketones,Urine Negative (Negative); Leukocyte Esterase,Urine Negative (Negative); Lymphocytes # (A) 0.5 k/uL (1.0-4.8); Lymphocytes % (A) 8 %; MCH 34.1 pg (25.0-35.0); MCV 106.6 fL (80.0-100.0); Macrocytosis Moderate; Mean Platelet Volume 7.4; Monocytes # (A) 0.3 k/uL (0-1.0); Monocytes % (A) 4 %; Neutrophils # (A) 5.1 k/uL (1.3-7.7); Neutrophils % (A) 86 %; Nitrite,Urine Negative (Negative); PH, Urine 5.5 (5.0-8.0); Protein,Urine Negative (Negative); RBC 3.43 m/uL (4.30-5.90); RDW 13.3 % (11.5-15.5); Specific Gravity,Urine 1.028 (1.001-1.035); Urobilinogen,Urine <2.0 mg/dL (<2.0)
[2024-03-06 21:27] LABS: VBG PH 7.39 (7.31-7.41)
[2024-03-06 21:29] LABS: Ionized Calcium 4.7 mg/dL (4.5-5.3)
[2024-03-06 21:32] LABS: Platelet Count 139 k/uL (150-450)
[2024-03-06 21:36] LABS: INR 1.2 (<1.2); Partial Thromboplastin Time 27.2 sec (22.0-30.0); Prothrombin Time 12.7 sec (10.0-12.5)
[2024-03-06 21:42] LABS: AST 57 U/L (17-59); African American GFR (CKD) >90 (>60 ml/min/1.73 sqM); Albumin 4.2 g/dL (3.5-5.0); Alkaline Phosphatase 189 U/L (38-126); Amylase 42 U/L (30-110); Anion Gap 17 mmol/L; Blood Urea Nitrogen <2 mg/dL (9-20); Calcium 9.4 mg/dL (8.4-10.2); Carbon Dioxide 15 mmol/L (22-30); Chloride 85 mmol/L (98-107); Lipase 76 U/L (23-300); Magnesium 1.9 mg/dL (1.6-2.3); Non-African American GFR(CKD) >90 (>60 ml/min/1.73 sqM); Phosphorus 4.1 mg/dL (2.5-4.5); Potassium 4.6 mmol/L (3.5-5.1); Total Protein 6.7 g/dL (6.3-8.2)
[2024-03-06 21:48] LABS: ALT 72 U/L (4-49)
[2024-03-06 21:55] LABS: Glucose 1246 mg/dL (74-99); Sodium 117 mmol/L (137-145)
[2024-03-06] MEDS: SODIUM CHLORIDE 0.9% 2,000 ML IV ONE (22:02)
[2024-03-06] MEDS ORDERED: ONDANSETRON ODT 4 MG TAB PO PRN (22:29)
[2024-03-06] MEDS ORDERED: LACTULOSE 20 GM/30 ML CUP PO PRN (22:29)
[2024-03-06] MEDS ORDERED: SENNOSIDES 8.6 MG TAB PO PRN (22:29)
[2024-03-06] MEDS ORDERED: NALOXONE 0.4 MG/ML 1 ML VIAL IV PRN (22:30)
[2024-03-06] MEDS: INSULIN REGULAR BOLUS (FROM DRIP BAG) IV ONE (23:04)
[2024-03-06] MEDS: INSULIN REGULAR 100 UNIT in SODIUM CHLORIDE 0.9% 100 ML IV SCH (23:05)
[2024-03-06] MEDS: SODIUM CHLORIDE 0.9% 2,000 ML IV STA (23:14)
[2024-03-06] MEDS: IBUPROFEN 400 MG TAB PO PRN (23:15)
[2024-03-07] MEDS: SODIUM CHLORIDE 0.9% 1,000 ML IV SCH (00:30)
--- NOTE | 2024-03-07 00:54 | P.HPIM ---
History of Present Illness H&P Date: 03/06/24 Chief Complaint: Abdominal pain Patient is a 28-year-old male with alcoholic cirrhosis presented to the ED for hyperglycemia and abdominal pain. The patient got his labs done earlier today and his primary care provider sent him to the ED as he was hyperglycemic. The patient mentions his lower abdominal pain is a 5/6 out of 10 severity. It started 3 weeks ago when he got discharged from [facility]. He was admitted for alcoholic cirrhosis and jaundice and at discharge he was prescribed vitamins, lactulose and prednisone. His last drink was 38 days ago. He mentions his apetite has increased since he quit drinking. He also complains of a headache since 3 weeks and is feeling weak. Denies fever, chills, nausea, vomiting, shortness of breath, cough, chest pain, palpitations, dysuria, joint pain, muscle aches, rashes. ED workup revealed Hb 11.7, Plt 139, Pt 12.7, INR 1.2, Na 117, Cl 85, bicarb 15, AG 17, glucose 1246, total terrance 3, urine glucose 4+ and negative acetone and alcohol. He was treated with insulin drip and 2L bolus NS Vitals: T 98.1F, P 126 bpm, RR 16, BP 142/88, O2 sat 99% on RA EKG: sinus tachycardia, T wave inversion in lead III and aVF, rate of 110 bpm, QTc 412 ms VBG: pH 7.39, pCO2 32, bicarb 19 ED documentation reviewed and case discussed with ED provider. Review of systems: Pertinent positives and negatives as discussed in HPI, a complete review of systems was performed and all other systems are negative. PSH: Bilateral total hip replacement due to avascular necrosis, club foot surgery Allergies: Penicillin, tramadol Social history: Tobacco: 10 cigarettes a day for 10 years Alcohol: 5-6 beers a day for 4 years, last drink was 38 days ago Recreational drugs: Occasional marijuana since 6 years Travel: No recent travel history Sick contacts: None Occupation: Unemployed Physical examination: Vital signs reviewed General: non toxic, no distress, appears at stated age, obese Derm: warm Head: atraumatic, normocephalic, symmetric Eyes: EOMI ENT: Nose and ears atraumatic Mouth: no lip lesion, mucus membranes moist Cardiovascular: S1S2 reg, no peripheral edema Lungs: Clear to auscultation bilateral, no accessory muscle use Abdominal: tender to deep palpation in lower abdomen and right lumbar region ,soft, no guarding Ext: muscle strength 4 out of 5 in all 4 extremities grossly, no gross muscle atrophy, no contractures Neuro: hypoesthesia on right LE, CN II-XI grossly intact, no gross focal neuro deficits Psych: Alert, oriented, appropriate affect Assessment/Plan: Patient is a 28 year old male with alcoholic cirrhosis who presented to the Ed with hyperglycemia and abdominal pain. Case discussed with the ED provider and admission accepted for Hyperglycemic Hyperosmolar Syndrome. #. Hyperglycemic Hyperosmolar Syndrome 0.9% normal saline 2L bolus, s/p 2L bolus in the ED, then continue at 200 cc per hour Continue Humulin IV 0.1 units/kg/h, s/p Humulin bolus 10 units Monitor K, replete if required. Blood glucose monitoring every hour Dietitian and Critical Care consulted Glucose 1246, chloride 85, low bicarb 15, elevated anion gap 17, urine glucose 4+ Acetone negative check A1c #. Pseudohyponatremia 2/2 severe hyperglycemia Sodium 117, corrected Na is about 143 Continue 0.9 normal saline per [facility] protocol Monitor BMP #. Alcoholic cirrhosis, currently in remission, last drink was 38 days ago elevated Total bilirubin 3, elevated ALT 72, elevated ALP 189, PT 12.7, INR 1.2, amylase 42, lipase 76 Continue thiamine 100 mg p.o. twice daily, lactulose 30 g p.o. twice daily as needed goal is 3-5 BM daily multivitamins 1 each p.o. daily, folic acid 1 mg p.o. daily, Follows outpatient with senior software test engineer continue rifaximin #. Macrocytic anemia Hb 11.7, MCV 106.6 Continue folic acid 1 mg p.o. daily Monitor CBC #. Thromobocytopenia, 2/2 history of alcohol abuse and advanced liver disease Plt 139 Monitior CBC #. Constipation Continue sennosides 8.6 mg p.o. daily as needed continue lactulose for liver cirrhosis #. Nausea and vomiting Continue ondansetron 4 mg odt p.o. every 8 hours as needed #. T wave inversion, no chest pain Check troponin consult cardiology , EKG showing new inferior lead III t wave inversion F: Normal saline bolus E: replete as required N: NPO A: Ambulatory DVT prophylaxis: lovenox 40 mg daily The patient is admitted with an anticipated less than 2 midnight stay for e valuation of hyperglycemia CODE STATUS: Full Code Discussed with: Patient Anticipated discharge place: Home Past Medical History Past Medical History: GERD/Reflux Additional Past Medical History / Comment(s): "inflamed colon", enlarged liver, avascular necrosis rt hip-uses a cane History of Any Multi-Drug Resistant Organisms: None Reported Past Surgical History: Orthopedic Surgery Additional Past Surgical History / Comment(s): club foot surgery rt foot Past Anesthesia/Blood Transfusion Reactions: No Reported Reaction Past Psychological History: Anxiety, Depression Smoking Status: Current every day smoker Past Alcohol Use History: None Reported Past Drug Use History: None Reported - Past Family History Mother Family Medical History: No Reported History Medications and Allergies Home Medications Medication Instructions Recorded Confirmed Type HYDROcodone/APAP 7.5-325MG [[place] 1 - 2 tab PO Q6H PRN #32 tab 06/17/20 08/13/20 Rx 7.5-325] HYDROcodone/APAP 7.5-325MG [[place] 1 - 2 tab PO Q6H PRN #32 tab 08/13/20 Rx 7.5-325] Ondansetron Odt [Zofran ODT] 1 tab PO Q8HR PRN #10 tab 08/13/20 Rx Sennosides [Senokot] 2 tab PO DAILY PRN #60 tablet 08/13/20 Rx Folic Acid 1 mg PO DAILY@1200 #30 tab 01/31/24 Rx Lactulose [Cephulac] 30 gm PO BID PRN ml 01/31/24 Rx Lactulose [Cephulac] 30 gm PO TID #480 ml 01/31/24 Rx Magnesium Oxide [Mag-Ox] 400 mg PO DAILY #30 tab 01/31/24 Rx Multivitamins, Thera [Multivitamin 1 each PO DAILY #30 tab 01/31/24 Rx (formulary)] Rifaximin [Xifaxan] 550 mg PO BID #60 tab 01/31/24 Rx Thiamine [Vitamin B-1] 100 mg PO BID #60 tab 01/31/24 Rx Allergies Allergy/AdvReac Type Severity Reaction Status Date / Time Penicillins Allergy Rash/Hives Verified 03/06/24 20:57 tramadol AdvReac "Don't Verified 03/06/24 20:[address] way it makes me feel." Physical Exam Vitals: Vital Signs Temp Pulse Resp BP Pulse Ox 03/06/24 20:54 98.1 F 126 H 16 142/88 99 Intake and Output 03/06/24 03/06/24 03/07/24 14:59 22:59 06:59 Other: Weight 99.79 kg Results CBC & Chem 7: 03/06/24 21:16 03/06/24 21:16 Labs: Abnormal Lab Results - Last 24 Hours (Table) 03/06/24 03/06/24 03/06/24 Range/Units 21:16 21:16 21:16 RBC 3.43 L (4.30-5.90) m/uL Hgb 11.7 L (13.0-17.5) gm/dL Hct 36.6 L (39.0-53.0) % MCV 106.6 H (80.0-100.0) fL Plt Count 139 L D (150-450) k/uL Lymphocytes # 0.5 L (1.0-4.8) k/uL PT (10.0-12.5) sec INR (<1.2) VBG pCO2 (37-51) mmHg VBG HCO3 (24-28) mmol/L Sodium 117 L* (137-145) mmol/L Chloride 85 L (98-107) mmol/L Carbon Dioxide 15 L (22-30) mmol/L BUN <2 L (9-20) mg/dL Creatinine 0.53 L (0.66-1.25) mg/dL Glucose 1246 H* (74-99) mg/dL Total Bilirubin 3.0 H (0.2-1.3) mg/dL ALT 72 H (4-49) U/L Alkaline Phosphatase 189 H (38-126) U/L Urine Glucose (UA) 4+ H (Negative) 03/06/24 03/06/24 Range/Units 21:16 21:16 RBC (4.30-5.90) m/uL Hgb (13.0-17.5) gm/dL Hct (39.0-53.0) % MCV (80.0-100.0) fL Plt Count (150-450) k/uL Lymphocytes # (1.0-4.8) k/uL PT 12.7 H (10.0-12.5) sec INR 1.2 H (<1.2) VBG pCO2 32 L (37-51) mmHg VBG HCO3 19 L (24-28) mmol/L Sodium (137-145) mmol/L Chloride (98-107) mmol/L Carbon Dioxide (22-30) mmol/L BUN (9-20) mg/dL Creatinine (0.66-1.25) mg/dL Glucose (74-99) mg/dL Total Bilirubin (0.2-1.3) mg/dL ALT (4-49) U/L Alkaline Phosphatase (38-126) U/L Urine Glucose (UA) (Negative) Thrombosis Risk Factor Assmnt - Choose All That Apply Each Factor Represents 1 point: Medical pt on bed rest, Obesity (BMI >25) Thrombosis Risk Factor Assessment Total Risk Factor Score: 2 Thrombosis Risk Factor Assessment Level: Low Risk Assessment and Plan Assessment: I have seen and evaluated the patient today. I Discussed the case with the resident and agree with the resident's findings I edited the assessment and plan as necessary as documented in the resident's note.
--- NOTE | 2024-03-07 02:15 | P.CNPUL ---
History of Present Illness Consult date: 03/07/24 Requesting physician: Emelina Cespedes Reason for consult: other ([facility]; ICU management) Chief complaint: Abnormal labs History of present illness: Patient is a 28-year-old male past medical history significant for alcoholic hepatitis. Patient has since stopped drinking, last reported drink was 38 days ago. Recently evaluated in [facility] in January for alcoholic liver disease and jaundice. Currently on a combination of lactulose, prednisone, vitamins. He has been following up with Dr. Stuart Nava in regards to his liver disease. He received a phone call today with abnormal labs and severely high blood sugar. He was directed to the emergency department. He denies any history of diabetes. He has been tapering off his prednisolone by direction of his primary care provider. He has been exhibiting symptoms of polydipsia and polyuria for several days. Denies any infectious symptoms. He does have some generalized abdominal discomfort; however, abdomen does not seem acute on clinical examination. Rated 5/6 on a 10 point numerical scale. This has been ongoing since his last hospital discharge. Abdomen is soft but distended. Denies any fevers. No history of paracentesis. Does have frequent episodes of diarrhea, approximately 5-10 episodes per day. He does take lactulose 3 times a day. Appetite has been well. No nausea or vomiting. Most recent labs include a CBC: WBC count 6, hemoglobin 11.7, hematocrit 36.6, platelets 139. CMP: Sodium 117, potassium 4.6, chloride 85, serum bicarb 15, anion gap 17, BUN less than 2, creatinine 0.53, glucose 1246. Patient's hyponatremia is a pseudohyponatremia, and corrected sodium is 135. VBG showed a pH of 7.39. Ketone and acetone negative. UA unremarkable for infection. Serum alcohol less than 10. Lipase 76. AST 57, ALT 72, ALP 189. Patient has since been started on the [facility] protocol. Insulin is infusing at 10 units/h. Normal saline infusing at 200 mL/h. He is currently in the emergency department, just got up to use the restroom. Clinically appears well. Vitals are stable. Review of Systems Constitutional: Denies chills, Denies fever, Denies poor appetite, Denies weight gain, Denies weight loss Ears, nose, mouth and throat: Reports headache, Denies dental pain, Denies nasal congestion, Denies nasal discharge, Denies sinus pressure, Denies sore throat Cardiovascular: Denies chest pain, Denies leg edema, Denies palpitations, Denies syncope Respiratory: Denies congestion, Denies cough with sputum, Denies dyspnea, Denies respiratory infections Gastrointestinal: Reports as per HPI Genitourinary: Denies dysuria, Denies flank pain Musculoskeletal: Denies arm numbness/tingling, Denies leg numbness/tingling, Denies limitation of motion Integumentary: Denies rash Neurological: Reports headaches, Denies confusion, Denies seizures, Denies syncope, Denies tremors, Denies visual changes Psychiatric: Denies anxiety, Denies depression Endocrine: Reports fatigue, Reports high blood sugars, Reports polydipsia, Reports polyuria, Reports recent glucocorticoid use, Denies polyphagia Past Medical History Past Medical History: GERD/Reflux Additional Past Medical History / Comment(s): "inflamed colon", enlarged liver, avascular necrosis rt hip-uses a cane History of Any Multi-Drug Resistant Organisms: None Reported Past Surgical History: Orthopedic Surgery Additional Past Surgical History / Comment(s): club foot surgery rt foot Past Anesthesia/Blood Transfusion Reactions: No Reported Reaction Past Psychological History: Anxiety, Depression Smoking Status: Current every day smoker Past Alcohol Use History: None Reported Past Drug Use History: None Reported - Past Family History Mother Family Medical History: No Reported History Medications and Allergies Home Medications Medication Instructions Recorded Confirmed Type HYDROcodone/APAP 7.5-325MG [[place] 1 - 2 tab PO Q6H PRN #32 tab 06/17/20 08/13/20 Rx 7.5-325] HYDROcodone/APAP 7.5-325MG [[place] 1 - 2 tab PO Q6H PRN #32 tab 08/13/20 Rx 7.5-325] Ondansetron Odt [Zofran ODT] 1 tab PO Q8HR PRN #10 tab 08/13/20 Rx Sennosides [Senokot] 2 tab PO DAILY PRN #60 tablet 08/13/20 Rx Folic Acid 1 mg PO DAILY@1200 #30 tab 01/31/24 Rx Lactulose [Cephulac] 30 gm PO BID PRN ml 01/31/24 Rx Lactulose [Cephulac] 30 gm PO TID #480 ml 01/31/24 Rx Magnesium Oxide [Mag-Ox] 400 mg PO DAILY #30 tab 01/31/24 Rx Multivitamins, Thera [Multivitamin 1 each PO DAILY #30 tab 01/31/24 Rx (formulary)] Rifaximin [Xifaxan] 550 mg PO BID #60 tab 01/31/24 Rx Thiamine [Vitamin B-1] 100 mg PO BID #60 tab 01/31/24 Rx Allergies Allergy/AdvReac Type Severity Reaction Status Date / Time Penicillins Allergy Rash/Hives Verified 03/06/24 20:57 tramadol AdvReac "Don't Verified 03/06/24 20:57 like the way it makes me feel." Physical Exam Vitals: Vital Signs Temp Pulse Resp BP BP Pulse Ox 03/07/24 01:00 93 16 137/74 96 03/07/24 00:40 98.6 F 96 14 137/74 96 03/07/24 00:34 98.1 F 86 18 132/79 03/07/24 00:00 96 18 120/88 99 03/06/24 23:50 98.6 F 16 124/78 100 03/06/24 20:54 98.1 F 126 H 16 142/88 99 Intake and Output 03/06/24 03/06/24 03/07/24 14:59 22:59 06:59 Other: Weight 99.79 kg 99.79 kg GENERAL EXAM: Alert, 28-year-old white male, well-nourished, comfortable in no apparent distress. HEAD: Normocephalic and atraumatic EYES: Normal reaction of pupils, equal size. Icteric sclera NOSE: Clear with pink turbinates. THROAT: No erythema or exudates. Mucous membranes moist NECK: No masses, no JVD. CHEST: No chest wall deformity. LUNGS: Equal air entry with no crackles, wheeze, rhonchi or dullness. Room air. No conversational dyspnea or accessory muscle use.. CVS: S1 and S2 normal with no audible murmur, regular rhythm. No extra heart s ounds ABDOMEN: Abdominal distention, active bowel sounds, soft, without guarding or rigidity, appreciable hepatomegaly. SPINE: No scoliosis or deformity SKIN: No rashes CENTRAL NERVOUS SYSTEM: No focal deficits, tone is normal in all 4 extremities. EXTREMITIES: There is no peripheral edema, clubbing, or cyanosis. Peripheral pulses are intact. Results - Laboratory Findings CBC and BMP: 03/06/24 21:16 03/06/24 21:16 PT/INR, D-dimer PT 12.7 sec (10.0-12.5) H 03/06/24 21:16 INR 1.2 (<1.2) H 03/06/24 21:16 Abnormal lab findings: Abnormal Labs 03/06/24 03/06/24 03/06/24 21:16 21:16 21:16 RBC 3.43 L Hgb 11.7 L Hct 36.6 L MCV 106.6 H Plt Count 139 L D Lymphocytes # 0.5 L PT INR VBG pCO2 VBG HCO3 Sodium 117 L* Chloride 85 L Carbon Dioxide 15 L BUN <2 L Creatinine 0.53 L Glucose 1246 H* Total Bilirubin 3.0 H ALT 72 H Alkaline Phosphatase 189 H Urine Glucose (UA) 4+ H 03/06/24 03/06/24 21:16 21:16 RBC Hgb Hct MCV Plt Count Lymphocytes # PT 12.7 H INR 1.2 H VBG pCO2 32 L VBG HCO3 19 L Sodium Chloride Carbon Dioxide BUN Creatinine Glucose Total Bilirubin ALT Alkaline Phosphatase Urine Glucose (UA) Assessment and Plan Assessment: Hyperglycemic hyperosmolar nonketotic syndrome Pseudohyponatremia, corrected sodium 135 when using correction factor of 1.6 History of alcoholism, currently in remission, last reported drink 38 days prior Alcoholic liver disease, follows outpatient with clinical pharmacy specialist Macrocytic anemia History of avascular necrosis and bilateral total hip arthroplasty Current everyday smoker Plan: Patient will be admitted to the intensive care unit for close monitoring Continues on NS protocol Insulin infusing at 10 units/h Goal of blood glucose reduction of 50 to 100 mg/dL/h Fluid volume resuscitation, currently receiving normal saline at 200 mL/h. Monitor electrolytes and replace per protocol No signs of hemodynamic compromise or shock No obvious infectious process noted. No prior known history of diabetes mellitus Patient has been tapering off prednisone outpatient Hemoglobin A1c pending DVT prophylaxis: SCDs GI prophylaxis: Pepcid Will continue to follow patient while in the intensive care unit I have personally seen and examined the patient, performed the documentation and the assessment and plan as written. Number of minutes spent on the visit:20 Time with Patient: Greater than 30
[2024-03-07 03:04] LABS: African American GFR (CKD) >90 (>60 ml/min/1.73 sqM); Anion Gap 6 mmol/L; Blood Urea Nitrogen <2 mg/dL (9-20); Carbon Dioxide 26 mmol/L (22-30); Chloride 100 mmol/L (98-107); Glucose 359 mg/dL (74-99); Non-African American GFR(CKD) >90 (>60 ml/min/1.73 sqM); Potassium 2.9 mmol/L (3.5-5.1); Sodium 132 mmol/L (137-145)
[2024-03-07] MEDS ORDERED: Magnesium Replacement Protocol 1 EACH MISC MISCELLANE PRN (03:13)
[2024-03-07] MEDS ORDERED: DEXTROSE 50% SYRINGE 50 ML IVP PRN ×4 (03:13→03:53)
[2024-03-07] MEDS ORDERED: Potassium Replacement Protocol 1 EACH MISC MISCELLANE PRN ×2 (03:13→03:59)
[2024-03-07] MEDS: D5-0.45% NACL WITH KCL 20MEQ/L 1,000 ML IV SCH (03:32)
[2024-03-07] MEDS: POTASSIUM CHLORIDE ER 20 MEQ TAB.ER PO SCH ×3 (04:23→20:26)
[2024-03-07] MEDS: INSULIN DETEMIR (LEVEMIR) 100 UNIT/ML SYR SQ SCH (04:24)
[2024-03-07 06:28] LABS: African American GFR (CKD) >90 (>60 ml/min/1.73 sqM); Anion Gap 5 mmol/L; Blood Urea Nitrogen <2 mg/dL (9-20); Carbon Dioxide 26 mmol/L (22-30); Chloride 104 mmol/L (98-107); Glucose 156 mg/dL (74-99); Non-African American GFR(CKD) >90 (>60 ml/min/1.73 sqM); Phosphorus 3.6 mg/dL (2.5-4.5); Potassium 3.1 mmol/L (3.5-5.1); Sodium 135 mmol/L (137-145)
[2024-03-07] MEDS: INSULIN ASPART (NovoLOG) 100 UNIT/ML VIAL SQ SCH ×2 (07:10→09:21)
[2024-03-07] MEDS: MULTIVITAMINS, THERA 1 EACH TAB PO SCH (08:25)
[2024-03-07] MEDS: THIAMINE 100 MG TAB PO SCH (08:25)
[2024-03-07] MEDS: FAMOTIDINE 20 MG TAB PO SCH (08:25)
[2024-03-07] MEDS: RIFAXIMIN 550 MG TABLET PO SCH (08:25)
[2024-03-07] MEDS: ENOXAPARIN 40 MG/0.4 ML SYRINGE SQ SCH (08:27)
[2024-03-07] MEDS ORDERED: MAGNESIUM OXIDE 400 MG TAB PO SCH (09:00)
--- NOTE | 2024-03-07 10:41 | P.PN ---
Subjective Progress Note Date: 03/07/24 Hospital course Patient is a 28-year-old male with alcoholic cirrhosis presented to the ED for hyperglycemia and abdominal pain. ED workup revealed Hb 11.7, Plt 139, Pt 12.7, INR 1.2, Na 117, Cl 85, bicarb 15, AG 17, glucose 1246, total terrance 3, urine glucose 4+ and negative acetone and alcohol. He was treated with insulin drip and 2L bolus NS. Vitals: T 98.1F, P 126 bpm, RR 16, BP 142/88, O2 sat 99% on RA. VBG: pH 7.39, pCO2 32, bicarb 19. Patient admitted to the ICU and was started on insulin drip. Patient the following day his blood glucose was better controlled and his sodium level had also normalized. Patient's lactic acid has normalized. Patient reported feeling better overall. Patient was transition to subcu insulin. Hemoglobin A1c is 12.5. Patient was seen this morning. Patient denying any acute complaints. I discussed with the patient that he will likely go home with insulin. I discussed with the ICU nurse to educate patient on how to administer the insulin. 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 Hyperglycemic Hyperosmolar Syndrome Patient transition to subcu insulin Patient started on Levemir 20 units daily Patient also started on sliding scale insulin and will add an additional 5 units aspart with each meal. Hemoglobin A1c is 12.5 I discussed with the nurse to educate patient on administering insulin I will discuss with disease case manager rn about setting up patient with glucometer This morning anion gap is 5 and bicarb is 26. #Hypokalemia Potassium this morning is 3.1. Will give the patient a total of 40 mill equivalents of potassium chloride #. Pseudohyponatremia 2/2 severe hyperglycemia Resolved #. Alcoholic cirrhosis, currently in remission, last drink was 38 days ago # Transaminitis with hyperbilirubinemia # Compensated liver cirrhosis Stable and the patient to follow-up outpatient with gastroenterology Resume rifaximin 550 mg p.o. twice daily, resume lactulose 30 g p.o. twice daily as needed to titrate to 2-3 bowel movements a day Patient has now been sober for over a month #. Macrocytic anemia Continue folic acid 1 mg p.o. daily stable #. Thromobocytopenia, 2/2 history of alcohol abuse and advanced liver disease stable #. Nausea and vomiting Continue ondansetron 4 mg odt p.o. every 8 hours as needed DVT prophylaxis: Subcu Lovenox Anticipate patient be ready for discharge tomorrow after he is educated for insulin administration and Accu-Cheks and also disease case manager rn arrange for glucometer Objective - Vital Signs Vital signs: Vital Signs Temp 98.2 F 03/07/24 09:00 Pulse 102 H 03/07/24 10:00 Resp 20 03/07/24 10:00 BP 118/66 03/07/24 10:00 Pulse Ox 95 03/07/24 10:00 FiO2 Intake & Output 03/06/24 03/07/24 03/07/24 18:59 06:59 18:59 Intake Total 750 120 Output Total 1000 0 Balance -250 120 Weight 98.3 kg Intake: Intake, IV Titration 750 Amount D5-0.45% NaCl with KCl 150 20Meq/l 1,000 ml @ 150 mls/hr IV .Q6H40M GRICEL Rx# :[id number] Sodium Chloride 0.9% 1, 600 000 ml @ 200 mls/hr IV . Q5H GRICEL Rx#:[id number] Oral 120 Output: Urine 1000 0 Other: # Bowel Movements 1 - Labs CBC & Chem 7: 03/06/24 21:16 03/07/24 09:51 Labs: Abnormal Lab Results - Last 24 Hours (Table) 03/06/24 03/06/24 03/06/24 Range/Units 21:16 21:16 21:16 RBC 3.43 L (4.30-5.90) m/uL Hgb 11.7 L (13.0-17.5) gm/dL Hct 36.6 L (39.0-53.0) % MCV 106.6 H (80.0-100.0) fL Plt Count 139 L D (150-450) k/uL Lymphocytes # 0.5 L (1.0-4.8) k/uL PT (10.0-12.5) sec INR (<1.2) VBG pCO2 (37-51) mmHg VBG HCO3 (24-28) mmol/L Sodium 117 L* (137-145) mmol/L Potassium (3.5-5.1) mmol/L Chloride 85 L (98-107) mmol/L Carbon Dioxide 15 L (22-30) mmol/L BUN <2 L (9-20) mg/dL Creatinine 0.53 L (0.66-1.25) mg/dL Glucose 1246 H* (74-99) mg/dL Hemoglobin A1c (<=6.0) % Plasma Lactic Acid Anshu (0.7-2.0) mmol/L Total Bilirubin 3.0 H (0.2-1.3) mg/dL ALT 72 H (4-49) U/L Alkaline Phosphatase 189 H (38-126) U/L Urine Glucose (UA) 4+ H (Negative) 03/06/24 03/06/24 03/06/24 Range/Units 21:16 21:16 23:43 RBC (4.30-5.90) m/uL Hgb (13.0-17.5) gm/dL Hct (39.0-53.0) % MCV (80.0-100.0) fL Plt Count (150-450) k/uL Lymphocytes # (1.0-4.8) k/uL PT 12.7 H (10.0-12.5) sec INR 1.2 H (<1.2) VBG pCO2 32 L (37-51) mmHg VBG HCO3 19 L (24-28) mmol/L Sodium (137-145) mmol/L Potassium (3.5-5.1) mmol/L Chloride (98-107) mmol/L Carbon Dioxide (22-30) mmol/L BUN (9-20) mg/dL Creatinine (0.66-1.25) mg/dL Glucose (74-99) mg/dL Hemoglobin A1c (<=6.0) % Plasma Lactic Acid Anshu 4.3 H* (0.7-2.0) mmol/L Total Bilirubin (0.2-1.3) mg/dL ALT (4-49) U/L Alkaline Phosphatase (38-126) U/L Urine Glucose (UA) (Negative) 03/07/24 03/07/24 03/07/24 Range/Units 02:22 02:22 05:21 RBC (4.30-5.90) m/uL Hgb (13.0-17.5) gm/dL Hct (39.0-53.0) % MCV (80.0-100.0) fL Plt Count (150-450) k/uL Lymphocytes # (1.0-4.8) k/uL PT (10.0-12.5) sec INR (<1.2) VBG pCO2 (37-51) mmHg VBG HCO3 (24-28) mmol/L Sodium 132 L 135 L (137-145) mmol/L Potassium 2.9 L 3.1 L (3.5-5.1) mmol/L Chloride (98-107) mmol/L Carbon Dioxide (22-30) mmol/L BUN <2 L <2 L (9-20) mg/dL Creatinine 0.46 L 0.46 L (0.66-1.25) mg/dL Glucose 359 H 156 H (74-99) mg/dL Hemoglobin A1c 12.5 H (<=6.0) % Plasma Lactic Acid Anhsu (0.7-2.0) mmol/L Total Bilirubin (0.2-1.3) mg/dL ALT (4-49) U/L Alkaline Phosphatase (38-126) U/L Urine Glucose (UA) (Negative) 03/07/24 Range/Units 09:51 RBC (4.30-5.90) m/uL Hgb (13.0-17.5) gm/dL Hct (39.0-53.0) % MCV (80.0-100.0) fL Plt Count (150-450) k/uL Lymphocytes # (1.0-4.8) k/uL PT (10.0-12.5) sec INR (<1.2) VBG pCO2 (37-51) mmHg VBG HCO3 (24-28) mmol/L Sodium (137-145) mmol/L Potassium 3.4 L (3.5-5.1) mmol/L Chloride (98-107) mmol/L Carbon Dioxide (22-30) mmol/L BUN (9-20) mg/dL Creatinine (0.66-1.25) mg/dL Glucose (74-99) mg/dL Hemoglobin A1c (<=6.0) % Plasma Lactic Acid Anshu (0.7-2.0) mmol/L Total Bilirubin (0.2-1.3) mg/dL ALT (4-49) U/L Alkaline Phosphatase (38-126) U/L Urine Glucose (UA) (Negative)
[2024-03-07] MEDS: FOLIC ACID 1 MG TAB PO SCH (12:21)
[2024-03-07 12:53] VITALS: BMI 32.9
--- NOTE | 2024-03-07 16:29 | P.CRDCN ---
History of Present Illness History of present illness: HISTORY OF PRESENTING ILLNESS Patient is pleasant 28-year-old male with history of alcoholic cirrhosis, new- onset of diabetes, alcohol use, obesity who presented secondary to outpatient workup showing severe hyperglycemia with glucose 1200, sodium 117 and 17. Patient denies any prior history of diabetes. Hemoglobin A1c is 12.5. He states he has been feeling thirsty and urinating frequently. Denies any chest pain or pressure. Cardiology was consult is secondary to abnormal EKG with T- wave inversions inferiorly. Lactic acid was 4.3. REVIEW OF SYSTEMS At the time of my exam: CONSTITUTIONAL: Denies fever or chills. CARDIOVASCULAR: Denies chest pain, shortness of breath, orthopnea, PND or palpitations. RESPIRATORY: Denies cough. GASTROINTESTINAL: Denies abdominal pain, diarrhea, constipation, nausea or vomiting. MUSCULOSKELETAL: Denies myalgias. NEUROLOGIC: Denies numbness, tingling or weakness. ENDOCRINE: Denies fatigue, weight change, polydipsia or polyurina. GENITOURINARY: Denies burning, hematuria or urgency with micturation. HEMATOLOGIC: Denies history of anemia or bleeding. PHYSICAL EXAMINATION Vital signs reviewed. CONSTITUTIONAL: No apparent distress. HEENT: Head is normocephalic. Pupils are equal, round. Sclerae anicteric. Mucous membranes of the mouth are moist. No JVD. No carotid bruit. CHEST EXAMINATION: Lungs are clear to auscultation. No chest wall tenderness is noted on palpation or with deep breathing. HEART EXAMINATION: Regular rate and rhythm. S1, S2 heard. No murmurs, gallops or rub. ABDOMEN: Soft, nontender. Positive bowel sounds. EXTREMITIES: 2+ peripheral pulses, no lower extremity edema and no calf tenderness. NEUROLOGIC EXAMINATION: Patient is awake, alert and oriented x3. ASSESSMENT HHS Abnormal EKG Alcoholic cirrhosis Alcohol abuse 39 and a sober Thrombocytopenia Hypokalemia Hyponatremia Lactic acidosis New-onset diabetes mellitus PLAN Patient with abnormal EKG likely secondary to HHS, lactic acidosis and no significant angina-type symptoms. Check 2-D echo to evaluate left ventricular function and check troponin for completeness. Alcohol cessation. Past Medical History Past Medical History: GERD/Reflux Additional Past Medical History / Comment(s): "inflamed colon", enlarged liver, avascular necrosis rt hip-uses a cane History of Any Multi-Drug Resistant Organisms: None Reported Past Surgical History: Orthopedic Surgery Additional Past Surgical History / Comment(s): club foot surgery rt foot Past Anesthesia/Blood Transfusion Reactions: No Reported Reaction Past Psychological History: Anxiety, Depression Smoking Status: Current every day smoker Past Alcohol Use History: None Reported Past Drug Use History: None Reported - Past Family History Mother Family Medical History: No Reported History Medications and Allergies Home Medications Medication Instructions Recorded Confirmed Type Folic Acid 1 mg PO DAILY@1200 #30 tab 01/31/24 03/07/24 Rx Lactulose [Cephulac] 30 gm PO TID #480 ml 01/31/24 03/07/24 Rx Magnesium Oxide [Mag-Ox] 400 mg PO DAILY #30 tab 01/31/24 03/07/24 Rx Multivitamins, Thera [Multivitamin 1 each PO DAILY #30 tab 01/31/24 03/07/24 Rx (formulary)] Thiamine [Vitamin B-1] 100 mg PO BID #60 tab 01/31/24 03/07/24 Rx Rifaximin [Xifaxan] 550 mg PO DIRECTED 03/07/24 03/07/24 History Allergies Allergy/AdvReac Type Severity Reaction Status Date / Time Penicillins Allergy Rash/Hives Verified 03/07/24 09:55 tramadol AdvReac "Don't Verified 03/07/24 09:[address] it makes me feel." Physical Exam Vitals: Vital Signs Temp Pulse Pulse Resp BP BP Pulse Ox 03/07/24 14:00 97.7 F 72 18 107/65 98 03/07/24 10:00 102 H 20 118/66 95 03/07/24 09:00 98.2 F 86 18 117/53 93 L 03/07/24 08:00 98.2 F 90 18 110/64 94 L 03/07/24 07:00 86 12 116/71 91 L 03/07/24 06:00 89 107/57 94 L 03/07/24 05:00 80 115/63 92 L 03/07/24 04:00 75 15 114/81 93 L 03/07/24 03:00 77 15 121/65 93 L 03/07/24 02:00 97 21 124/78 94 L 03/07/24 01:00 93 16 137/74 96 03/07/24 00:40 98.6 F 96 14 137/74 96 03/07/24 00:34 98.1 F 86 18 132/79 03/07/24 00:00 96 18 120/88 99 03/06/24 23:50 98.6 F 16 124/78 100 03/06/24 20:54 98.1 F 126 H 16 142/88 99 Intake and Output 03/07/24 03/07/24 03/07/24 06:59 14:59 22:59 Intake Total 750 240 Output Total 1000 0 Balance -250 240 Intake: Intake, IV Titration 750 Amount D5-0.45% NaCl with KCl 150 20Meq/l 1,000 ml @ 150 mls/hr IV .Q6H40M GRICEL Rx# :[id number] Sodium Chloride 0.9% 1, 600 000 ml @ 200 mls/hr IV . Q5H GRICEL Rx#:[id number] Oral 240 Output: Urine 1000 0 Other: # Voids 1 1 # Bowel Movements 1 Weight 98.3 kg 98.3 kg Results 03/06/24 21:16 03/07/24 09:51 Cardiac Enzymes 03/06/24 Range/Units 21:16 AST 57 (17-59) U/L Coagulation 03/06/24 Range/Units 21:16 PT 12.7 H (10.0-12.5) sec APTT 27.2 (22.0-30.0) sec CBC 03/06/24 Range/Units 21:16 WBC 6.0 (3.8-10.6) k/uL RBC 3.43 L (4.30-5.90) m/uL Hgb 11.7 L (13.0-17.5) gm/dL Hct 36.6 L (39.0-53.0) % Plt Count 139 L D (150-450) k/uL Comprehensive Metabolic Panel 03/06/24 03/07/24 03/07/24 Range/Units 21:16 02:22 05:21 Sodium 117 L* 132 L 135 L (137-145) mmol/L Potassium 4.6 2.9 L 3.1 L (3.5-5.1) mmol/L Chloride 85 L 100 104 (98-107) mmol/L Carbon Dioxide 15 L 26 26 (22-30) mmol/L BUN <2 L <2 L <2 L (9-20) mg/dL Creatinine 0.53 L 0.46 L 0.46 L (0.66-1.25) mg/dL Glucose 1246 H* 359 H 156 H (74-99) mg/dL Calcium 9.4 (8.4-10.2) mg/dL AST 57 (17-59) U/L ALT 72 H (4-49) U/L Alkaline Phosphatase 189 H (38-126) U/L Total Protein 6.7 (6.3-8.2) g/dL Albumin 4.2 (3.5-5.0) g/dL 03/07/24 Range/Units 09:51 Sodium (137-145) mmol/L Potassium 3.4 L (3.5-5.1) mmol/L Chloride (98-107) mmol/L Carbon Dioxide (22-30) mmol/L BUN (9-20) mg/dL Creatinine (0.66-1.25) mg/dL Glucose (74-99) mg/dL Calcium (8.4-10.2) mg/dL AST (17-59) U/L ALT (4-49) U/L Alkaline Phosphatase (38-126) U/L Total Protein (6.3-8.2) g/dL Albumin (3.5-5.0) g/dL Current Medications Generic Name Dose Route Start Last Admin Trade Name Freq PRN Reason Stop Dose Admin Dextrose/Water 25 ml 03/07/24 03:13 Dextrose 50% Syringe 50 Ml IVP PER PROTOCOL PRN Hypoglycemia Protocol Dextrose/Water 50 ml 03/07/24 03:13 Dextrose 50% Syringe 50 Ml IVP PER PROTOCOL PRN Hypoglycemia Protocol Dextrose/Water 25 ml 03/07/24 03:53 Dextrose 50% Syringe 50 Ml IVP PER PROTOCOL PRN Hypoglycemia Protocol Dextrose/Water 50 ml 03/07/24 03:53 Dextrose 50% Syringe 50 Ml IVP PER PROTOCOL PRN Hypoglycemia Protocol Enoxaparin Sodium 40 mg 03/07/24 09:00 03/07/24 08:27 Enoxaparin 40 Mg/0.4 Ml Syringe SQ 40 mg DAILY GRICEL Administration Famotidine 20 mg 03/07/24 09:00 03/07/24 08:25 Famotidine 20 Mg Tab PO 20 mg DAILY GRICEL Administration Folic Acid 1 mg 03/07/24 12:00 03/07/24 12:21 Folic Acid 1 Mg Tab PO 1 mg DAILY@1200 [facility] Administration Ibuprofen 400 mg 03/06/24 22:30 03/06/24 23:15 Ibuprofen 400 Mg Tab PO 400 mg Q6HR PRN Administration Mild Pain or Fever > 100.5 Insulin Aspart 0 unit 03/07/24 07:30 03/07/24 12:22 Insulin Aspart (Novolog) 100 Unit/Ml Vial SQ 6 unit ACHS GRICEL Administration Protocol Insulin Aspart 5 unit 03/07/24 09:30 03/07/24 12:21 Insulin Aspart (Novolog) 100 Unit/Ml Vial SQ 5 unit AC-TID GRICEL Administration Insulin Detemir 20 unit 03/07/24 03:52 03/07/24 06:48 Insulin Detemir (Levemir) 100 Unit/Ml Syr SQ Not Given DAILY@0700 [facility] Lactulose 30 gm 03/06/24 22:29 Lactulose 20 Gm/30 Ml Cup PO BID PRN ELEVATED AMMONIA Miscellaneous Information 1 each 03/07/24 03:13 Magnesium Replacement Protocol 1 Each Misc MISCELLANE DAILY PRN Per Protocol Protocol Miscellaneous Information 1 each 03/07/24 03:59 Potassium Replacement Protocol 1 Each Misc MISCELLANE DAILY PRN Per Protocol Protocol Multivitamins 1 each 03/07/24 09:00 03/07/24 08:25 Multivitamins, Thera 1 Each Tab PO 1 each DAILY GRICEL Administration Naloxone HCl 0.2 mg 03/06/24 22:30 Naloxone 0.4 Mg/Ml 1 Ml Vial IV Q2M PRN Opioid Reversal Ondansetron HCl 4 mg 03/06/24 22:29 Ondansetron Odt 4 Mg Tab PO Q8HR PRN Nausea Rifaximin 550 mg 03/07/24 09:00 03/07/24 08:25 Rifaximin 550 Mg Tablet PO 04/06/24 08:59 550 mg BID [facility] Administration Protocol Senna 8.6 mg 03/06/24 22:29 Sennosides 8.6 Mg Tab PO DAILY PRN Constipation Thiamine HCl 100 mg 03/07/24 09:00 03/07/24 08:25 Thiamine 100 Mg Tab PO 100 mg BID GRICEL Administration Intake and Output 03/07/24 03/07/24 03/07/24 06:59 14:59 22:59 Intake Total 750 240 Output Total 1000 0 Balance -250 240 Intake: Intake, IV Titration 750 Amount D5-0.45% NaCl with KCl 150 20Meq/l 1,000 ml @ 150 mls/hr IV .Q6H40M GRICEL Rx# :[id number] Sodium Chloride 0.9% 1, 600 000 ml @ 200 mls/hr IV . Q5H GRICEL Rx#:[id number] Oral 240 Output: Urine 1000 0 Other: # Voids 1 1 # Bowel Movements 1 Weight 98.3 kg 98.3 kg Patient Weight 03/08/24 06:59 Weight 98.3 kg 03/06/24 21:16 03/07/24 09:51
[2024-03-08 05:48] LABS: African American GFR (CKD) >90 (>60 ml/min/1.73 sqM); Anion Gap 6 mmol/L; Blood Urea Nitrogen 2 mg/dL (9-20); Calcium 8.4 mg/dL (8.4-10.2); Carbon Dioxide 25 mmol/L (22-30); Chloride 104 mmol/L (98-107); Glucose 273 mg/dL (74-99); Non-African American GFR(CKD) >90 (>60 ml/min/1.73 sqM); Potassium 3.8 mmol/L (3.5-5.1); Sodium 135 mmol/L (137-145)
[2024-03-08] MEDS: POTASSIUM CHLORIDE ER 20 MEQ TAB.ER PO SCH (07:03)
[2024-03-08 07:58] VITALS: TEMP 98.2
--- NOTE | 2024-03-08 10:54 | CA ---
Transthoracic Echo Report Name: Brad Gann Age: 28 Gender: M : 1995 Exam Date: 03/08/2024 08:24 Exam Location: [facility] Ht (in): 68 Wt (lb): 216 Ordering Physician: Gustavo Segura DO ([email or web address]) Attending/Referring Phys: Manager Resort Jeannette Varela RDCS Procedure CPT: Indications: re: LV function, abnormal EKG Cardiac Hx: Technical Quality: Fair Contrast 1: Total Dose (mL): Contrast 2: Total Dose (mL): MEASUREMENTS (Male / Female) Normal Values 2D ECHO LV Diastolic Diameter PLAX 6.2 cm 4.2 - 5.9 / 3.9 - 5.3 cm LV Systolic Diameter PLAX 4.0 cm IVS Diastolic Thickness 0.9 cm 0.6 - 1.0 / 0.6 - 0.9 cm LVPW Diastolic Thickness 1.1 cm 0.6 - 1.0 / 0.6 - 0.9 cm LV Relative Wall Thickness 0.3 LVOT Diameter 2.3 cm LV Diastolic Volume MOD BP 138.5 cm??? 67 - 155 / 56 - 104 cm??? LV Systolic Volume MOD BP 55.8 cm??? 22 - 58 / 19 - 49 cm??? LV Ejection Fraction MOD BP 59.7 % >= 55 % LV Cardiac Index MOD BP 3308.1 cm???/min???m??? LV Diastolic Volume MOD 4C 153.7 cm??? LV Systolic Volume MOD 4C 63.2 cm??? LV Ejection Fraction MOD 4C 58.9 % LV Cardiac Index MOD 4C 3618.9 cm???/min???m??? LV Diastolic Length 4C 8.2 cm LV Systolic Length 4C 6.6 cm LV Diastolic Volume MOD 2C 124.1 cm??? LV Systolic Volume MOD 2C 47.9 cm??? LV Ejection Fraction MOD 2C 61.4 % LV Cardiac Index MOD 2C 3045.3 cm???/min???m??? LV Diastolic Length 2C 8.2 cm LV Systolic Length 2C 6.4 cm LA Volume 59.1 cm??? 18 - 58 / 22 - 52 cm??? LA Volume Index 26.8 cm???/m??? 16 - 28 cm???/m??? Ascending Aorta Diameter 3.3 cm DOPPLER AV Peak Velocity 181.3 cm/s AV Peak Gradient 13.2 mmHg AV Mean Velocity 119.3 cm/s AV Mean Gradient 6.5 mmHg AV Velocity Time Integral 32.2 cm LVOT Peak Velocity 129.8 cm/s LVOT Peak Gradient 6.7 mmHg LVOT Velocity Time Integral 24.1 cm LVOT Stroke Volume 99.9 cm??? LVOT Stroke Volume Index 47.3 ml/m??? LVOT Cardiac Index 3993.9 cm???/min???m??? AV Area Cont Eq vti 3.1 cm??? AV Area Cont Eq pk 3.0 cm??? MV Area PHT 5.8 cm??? Mitral E Point Velocity 80.8 cm/s Mitral A Point Velocity 80.5 cm/s Mitral E to A Ratio 1.0 MV Deceleration Time 131.6 ms PV Peak Velocity 107.7 cm/s PV Peak Gradient 4.6 mmHg FINDINGS Left Ventricle Left ventricular ejection fraction is estimated at 55-60 %. Mildly increased left ventricular diastolic diameter. Left ventricular wall thickness normal. No obvious regional wall motion abnormalities. Right Ventricle Normal right ventricular size and function. Right Atrium Normal right atrial size. Left Atrium Mildly increased left atrial volume. Mildly increased left atrial area. Mitral Valve Structurally normal mitral valve. No evidence for mitral valve prolapse. No mitral stenosis. Trace mitral regurgitation. Aortic Valve Trileaflet aortic valve. No aortic valve stenosis or regurgitation. Tricuspid Valve Structurally normal tricuspid valve. No tricuspid prolapse. No tricuspid regurgitation. Pulmonic Valve Structurally normal pulmonic valve. No pulmonic stenosis. No pulmonic regurgitation. Pericardium No pericardial effusion. Aorta Normal size aortic root and proximal ascending aorta. CONCLUSIONS Mildly dilated LV cavity. Normal diastolic function with EF 55% No obvious regional wall motion abnormality Mild left atrial dilatation No significant valvular dysfunction Normal RV size and systolic function Previewed by: Dr Alireza Mario (Electronically Signed) Final Date: 08 March 2024 10:54
--- NOTE | 2024-03-08 11:26 | P.DS ---
Providers Date of admission: 03/06/24 22:29 Attending physician: Clinton Garnett MD Consults: 03/06/24 23:10 Consult Physician Urgent Consulting Provider: John Lebron Consult Reason/Comments: ICU Do you want consulting provider notified?: Yes, Notify in am 03/07/24 03:14 Consult Physician Routine Consulting Provider: Brady Stiles Consult Reason/Comments: new T wave inversion in inferior lead III Do you want consulting provider notified?: Yes, Notify in am 03/07/24 04:25 Consult Physician Routine Consulting Provider: Alicia Nava Consult Reason/Comments: alcoholic cirrhosis Do you want consulting provider notified?: Yes, Notify in am [facility] Course: Discharge Diagnosis: Hyperglycemic hyperosmolar syndrome Hypokalemia Pseudohyponatremia secondary to severe hypoglycemia Alcoholic cirrhosis Transaminitis with hyperbilirubinemia secondary above Compensated liver cirrhosis Macrocytic anemia Thrombocytopenia secondary alcohol abuse Hospital Course: Patient is a 28-year-old male with alcoholic cirrhosis presented to the ED for hyperglycemia and abdominal pain. ED workup revealed Hb 11.7, Plt 139, Pt 12.7, INR 1.2, Na 117, Cl 85, bicarb 15, AG 17, glucose 1246, total terrance 3, urine glucose 4+ and negative acetone and alcohol. He was treated with insulin drip and 2L bolus NS. Vitals: T 98.1F, P 126 bpm, RR 16, BP 142/88, O2 sat 99% on RA. VBG: pH 7.39, pCO2 32, bicarb 19. Patient admitted to the ICU and was started on insulin drip. Patient the following day his blood glucose was better controlled and his sodium level had also normalized. Patient's lactic acid has normalized. Patient reported feeling better overall. Patient was transition to subcu insulin. Hemoglobin A1c is 12.5. Will discharge the patient on Levemir 20 units subcu daily and sliding scale insulin. Patient instructed to track his blood glucose levels before breakfast lunch and dinner and to follow-up with PCP for better management of his diabetes mellitus. While in the hospital patient was educated on how to administer insulin and patient also received education on how to check his blood glucose with a glucometer. Patient also did have an abnormal EKG so cardiology was consulted. Echocardiogram was unremarkable. Troponin negative. Patient denied any chest pain. Patient deemed stable for discharge. At the time of discharge his sodium was 135. Bicarb was 25. Anion gap was 6. Patient seen and examined at bedside.[] Vital signs reviewed and stable. General: [non toxic], [no distress], [appears at stated age] Derm: [warm], [dry] Head: [atraumatic], [normocephalic], [symmetric] Eyes: [EOMI], [no lid lag], [anicteric sclera] Mouth: [no lip lesion], [mucus membranes moist] Cardiovascular: [S1S2 reg], [no murmur], [positive posterior tibial pulse bilateral], Lungs: [CTA bilateral], [no rhonchi, no rales] , [no accessory muscle use] Abdominal: [soft], [ nontender to palpation], [no guarding], [no appreciable organomegaly] Ext: [no gross muscle atrophy], [no edema], [no contractures] Neuro: [ CN II-XI grossly intact], [no focal neuro deficits] Psych: [Alert], [oriented], [appropriate affect] A total of [33] minutes of time were spent preparing this complex discharge summary . Patient Condition at Discharge: Poor Plan - Discharge Summary Discharge Rx Participant: Yes New Discharge Prescriptions: New Insulin Detemir [Levemir Flexpen] 20 units SQ DAILY 30 Days #10 ml Insulin Aspart [NovoLOG Flexpen] 0 units SQ AC-TID 30 Days #100 ml Continue Multivitamins, Thera [Multivitamin (formulary)] 1 each PO DAILY #30 tab Thiamine [Vitamin B-1] 100 mg PO BID #60 tab Rifaximin [Xifaxan] 550 mg PO DIRECTED Lactulose [Cephulac] 30 gm PO TID #480 ml Folic Acid 1 mg PO DAILY@1200 #30 tab Magnesium Oxide [Mag-Ox] 400 mg PO DAILY #30 tab Discharge Medication List Folic Acid 1 mg PO DAILY@1200 #30 tab 01/31/24 [Rx] Lactulose [Cephulac] 30 gm PO TID #480 ml 01/31/24 [Rx] Magnesium Oxide [Mag-Ox] 400 mg PO DAILY #30 tab 01/31/24 [Rx] Multivitamins, Thera [Multivitamin (formulary)] 1 each PO DAILY #30 tab 01/31/24 [Rx] Thiamine [Vitamin B-1] 100 mg PO BID #60 tab 01/31/24 [Rx] Rifaximin [Xifaxan] 550 mg PO DIRECTED 03/07/24 [History] Insulin Aspart [NovoLOG Flexpen] 0 units SQ AC-TID 30 Days #100 ml 03/08/24 [Rx] Insulin Detemir [Levemir Flexpen] 20 units SQ DAILY 30 Days #10 ml 03/08/24 [Rx] Follow up Appointment(s)/Referral(s): Fantasma Hernandez MD [REFERRING] - 1 Week Dyan Londono MD [Primary Care Provider] - 1-2 days Patient Instructions/Handouts: Type 1 Diabetes in Adults: New Diagnosis (DC), How to Give an Insulin Injection (DC), Hyperosmolar Hyperglycemic State (DC) Discharge Disposition: HOME SELF-CARE
[2024-03-08 12:44] VITALS: BP 171/86; PULSE 98; RESP 16
--- NOTE | 2024-03-08 13:27 | P.PN ---
Subjective Progress Note Date: 03/08/24 Patient is a 28-year-old male past medical history significant for alcoholic hepatitis. Patient has since stopped drinking, last reported drink was 38 days ago. Recently evaluated in [facility] in January for alcoholic liver disease and jaundice. Currently on a combination of lactulose, prednisone, vitamins. He has been following up with Dr. Stuart Nava in regards to his liver disease. He received a phone call today with abnormal labs and severely high blood sugar. He was directed to the emergency department. He denies any history of diabetes. He has been tapering off his prednisolone by direction of his primary care provider. He has been exhibiting symptoms of polydipsia and polyuria for several days. Denies any infectious symptoms. He does have some generalized abdominal discomfort; however, abdomen does not seem acute on clinical examination. Rated 5/6 on a 10 point numerical scale. This has been ongoing since his last hospital discharge. Abdomen is soft but distended. Denies any fevers. No history of paracentesis. Does have frequent episodes of diarrhea, approximately 5-10 episodes per day. He does take lactulose 3 times a day. Appetite has been well. No nausea or vomiting. Most recent labs include a CBC: WBC count 6, hemoglobin 11.7, hematocrit 36.6, platelets 139. CMP: Sodium 117, potassium 4.6, chloride 85, serum bicarb 15, anion gap 17, BUN less than 2, creatinine 0.53, glucose 1246. Patient's hyponatremia is a pseudohyponatremia, and corrected sodium is 135. VBG showed a pH of 7.39. Ketone and acetone negative. UA unremarkable for infection. Serum alcohol less than 10. Lipase 76. AST 57, ALT 72, ALP 189. Patient has since been started on the [facility] protocol. Insulin is infusing at 10 units/h. Normal saline infusing at 200 mL/h. He is currently in the emergency department, just got up to use the restroom. Clinically appears well. Vitals are stable. The patient is seen today March 08, 2024 in follow-up on the regular medical floor. He was transferred out of the ICU yesterday. He is awake and alert in no acute distress. He is maintaining good O2 saturations in the 90s on room air. He denies any shortness of breath, cough or congestion. He has been transition to Levemir. Lovenox for DVT prophylaxis. Sodium 135. Potassium 3.8. Bicarb 25. Anion gap 6. BUN 2. Creatinine 0.57. Glucose 273. Echocardiogram revealed normal systolic function with ejection fraction of 55%. Objective - Vital Signs Vital signs: Vital Signs Temp 98.2 F 03/08/24 12:43 Pulse 98 03/08/24 12:43 Resp 16 03/08/24 12:43 BP 171/86 03/08/24 12:43 Pulse Ox 96 03/08/24 12:43 FiO2 Intake & Output 03/07/24 03/08/24 03/08/24 18:59 06:59 18:59 Intake Total 360 590 480 Output Total 0 Balance 360 590 480 Weight 98.3 kg Intake: Oral 360 590 480 Output: Urine 0 Other: # Voids 2 2 # Bowel Movements 1 - Exam GENERAL EXAM: Alert, pleasant, cooperative 28-year-old male, on room air, comfortable in no apparent distress. HEAD: Normocephalic. EYES: Normal reaction of pupils, equal size. NOSE: Clear with pink turbinates. THROAT: No erythema or exudates. NECK: No masses, no JVD. CHEST: No chest wall deformity. LUNGS: Equal air entry with no crackles, wheeze, rhonchi or dullness. CVS: S1 and S2 normal with no audible murmur, regular rhythm. ABDOMEN: No hepatosplenomegaly, normal bowel sounds, no guarding or rigidity. SPINE: No scoliosis or deformity SKIN: No rashes CENTRAL NERVOUS SYSTEM: No focal deficits, tone is normal in all 4 extremities. EXTREMITIES: There is no peripheral edema. No clubbing, no cyanosis. Peripheral pulses are intact. - Labs CBC & Chem 7: 03/06/24 21:16 03/08/24 04:54 Labs: Abnormal Lab Results - Last 24 Hours (Table) 03/08/24 03/08/24 Range/Units 04:54 04:54 Sodium 135 L (137-145) mmol/L BUN 2 L (9-20) mg/dL Creatinine 0.57 L (0.66-1.25) mg/dL Glucose 273 H (74-99) mg/dL Hemoglobin A1c 12.1 H (<=6.0) % Assessment and Plan Assessment: Hyperglycemic hyperosmolar nonketotic syndrome, recovered Pseudohyponatremia, corrected sodium 135 when using correction factor of 1.6 History of alcoholism, currently in remission, last reported drink 38 days prior Alcoholic liver disease, follows outpatient with record label intern Macrocytic anemia History of avascular necrosis and bilateral total hip arthroplasty Current everyday smoker Plan: The patient was seen and evaluated Labs and medications reviewed Stable and on room air Transitioned to Levemir Cleared for discharge from the pulmonary standpoint Follow-up closely with his primary care provider Follow-up closely with his record label intern Encouraged regarding the importance of continued alcohol cessation This patient was seen independently by the pulmonary nurse practitioner addressing pulmonary issues I have personally seen and examined the patient, performed the documentation and the assessment and plan as written. Number of minutes spent on the visit: 24.
[2024-03-10 07:17] LABS: Glucose,Whole Blood 317 mg/dL (70-110)
[2024-03-10 07:17] LABS: Glucose,Whole Blood 242 mg/dL (70-110)
[2024-03-10 08:14] LABS: Glucose,Whole Blood 243 mg/dL (70-110)
[2024-03-10 08:14] LABS: Glucose,Whole Blood 320 mg/dL (70-110)
[2024-03-10 11:56] LABS: Glucose,Whole Blood 194 mg/dL (70-110)
[2024-03-10 11:56] LABS: Glucose,Whole Blood 191 mg/dL (70-110)
[2024-03-10 11:56] LABS: Glucose,Whole Blood 398 mg/dL (70-110)
[2024-03-10 11:56] LABS: Glucose,Whole Blood >600 mg/dL (70-110)
[2024-03-10 11:56] LABS: Glucose,Whole Blood 521 mg/dL (70-110)
[2024-03-10 11:56] LABS: Glucose,Whole Blood 298 mg/dL (70-110)
[2024-03-10 11:56] LABS: Glucose,Whole Blood >600 mg/dL (70-110)
[2024-03-10 11:57] LABS: Glucose,Whole Blood 243 mg/dL (70-110)
[2024-03-10 11:57] LABS: Glucose,Whole Blood 235 mg/dL (70-110)
[2024-03-10 11:57] LABS: Glucose,Whole Blood 198 mg/dL (70-110)
[2024-03-10 11:57] LABS: Glucose,Whole Blood 247 mg/dL (70-110)
[2024-03-10 11:57] LABS: Glucose,Whole Blood 205 mg/dL (70-110)
[2024-03-10 11:57] LABS: Glucose,Whole Blood 245 mg/dL (70-110)
[2024-03-10 11:57] LABS: Glucose,Whole Blood 292 mg/dL (70-110)
== END 2024-03-08 15:16 | disposition home or self-care (01) | DRG 420 ==
LOC: EC 20:51 → 3SCARD 22:29 → 2SICU 23:40 → 5NMEDONC 03-07 23:06
PROVIDERS: ADMIT Internal Medicine; ATTEND Internal Medicine
DX: E11.00 Type 2 diabetes mellitus with hyperosmolarity without nonketotic hyperglycemic-hyperosmolar coma (NKHHC) (principal); E66.9 Obesity, unspecified; Z68.33 Body mass index [BMI] 33.0-33.9, adult; D69.59 Other secondary thrombocytopenia; D53.9 Nutritional anemia, unspecified; E87.1 Hypo-osmolality and hyponatremia; R11.2 Nausea with vomiting, unspecified; E87.20 Acidosis, unspecified; K59.00 Constipation, unspecified; E87.6 Hypokalemia; F10.21 Alcohol dependence, in remission; F17.210 Nicotine dependence, cigarettes, uncomplicated; F32.A Depression, unspecified; F41.9 Anxiety disorder, unspecified; K70.30 Alcoholic cirrhosis of liver without ascites; Z56.0 Unemployment, unspecified; Z96.643 Presence of artificial hip joint, bilateral; Z88.5 Allergy status to narcotic agent; Z88.0 Allergy status to penicillin
CPT/HCPCS: 36415; 80048; 80051; 80053; 80320; 81003; 82009; 82150; 82330; 82565; 82803; 82947; 83036; 83605; 83690; 83735; 83930; 84100; 84132; 84484; 84520; 85025; 85610; 85730; 93005; 93306; 96360; 96361; 99285

== ENCOUNTER → 2024-03-06 | Outpatient (CLI) | payer OTHER ==
[2024-03-06 15:34] LABS: Basophils # (A) 0.01 X 10*3/uL (0.00-0.10); Basophils % (A) 0.2 %; Eosinophils # (A) 0.03 X 10*3/uL (0.04-0.35); Eosinophils % (A) 0.5 %; HCT 34.1 % (39.6-50.0); HGB 11.7 g/dL (13.0-17.0); Lymphocytes # (A) 0.45 X 10*3/uL (0.90-5.00); Lymphocytes % (A) 7.7 %; MCH 33.8 pg (27.0-32.0); MCHC 34.3 g/dL (32.0-37.0); MCV 98.6 FL (80.0-97.0); Mean Platelet Volume 10.2 FL (9.5-12.2); Monocytes % (A) 3.4 %; NRBC Per 100 WBC 0 X 10*3/uL (0.00-0.01); Neutrophils # (A) 5.14 X 10*3/uL (1.80-7.70); Neutrophils % (A) 87.9 %; Platelet Count 126 X 10*3/uL (140-440); RBC 3.46 X 10*6/uL (4.40-5.60); RDW 12.8 % (11.5-14.5); WBC 5.85 X 10*3/uL (4.50-10.00)
[2024-03-06 16:38] LABS: INR 1.18 sec (0.93-1.11); Prothrombin Time 12.6 sec (9.9-11.9)
[2024-03-06 16:40] LABS: ALT 70 U/L (10-49); AST 69 U/L (14-35); Albumin 3.9 g/dL (3.8-4.9); Albumin/Globulin Ratio 1.44 Ratio (1.60-3.17); Alkaline Phosphatase 179 U/L (41-126); BUN/Creat Ratio <3.89 Ratio (12.00-20.00); Blood Urea Nitrogen <3.5 mg/dL (9.0-27.0); Calcium 9.3 mg/dL (8.7-10.3); Carbon Dioxide 18.9 mmol/L (21.6-31.8); Chloride 87 mmol/L (96-109); Globulin 2.7 g/dL (1.6-3.3); Glucose 976 mg/dL (70-110); Sodium 127 mmol/L (135-145); Total Bilirubin 2.9 mg/dL (0.3-1.2); Total Protein 6.6 g/dL (6.2-8.2)
== END | disposition home or self-care (01) ==
LOC: LABWHC1 11:17
PROVIDERS: ATTEND Internal Medicine Gastroenterology
DX: F10.988 Alcohol use, unspecified with other alcohol-induced disorder (principal)
CPT/HCPCS: 36415; 80053; 85025; 85610

== ENCOUNTER → 2024-04-12 | Outpatient (CLI) | payer OTHER ==
[2024-04-12 15:05] LABS: Basophils # (A) 0.03 X 10*3/uL (0.00-0.10); Basophils % (A) 0.4 %; Eosinophils # (A) 0.12 X 10*3/uL (0.04-0.35); Eosinophils % (A) 1.6 %; HCT 38.5 % (39.6-50.0); HGB 12.8 g/dL (13.0-17.0); MCH 31.3 pg (27.0-32.0); MCHC 33.2 g/dL (32.0-37.0); MCV 94.1 FL (80.0-97.0); Mean Platelet Volume 9.3 FL (9.5-12.2); Monocytes # (A) 0.48 X 10*3/uL (0.20-1.00); Monocytes % (A) 6.3 %; NRBC Per 100 WBC 0 X 10*3/uL (0.00-0.01); Neutrophils # (A) 5.69 X 10*3/uL (1.80-7.70); Neutrophils % (A) 74.6 %; Platelet Count 188 X 10*3/uL (140-440); RBC 4.09 X 10*6/uL (4.40-5.60); RDW 12.9 % (11.5-14.5); WBC 7.63 X 10*3/uL (4.50-10.00)
[2024-04-12 15:11] LABS: Blood Urea Nitrogen 12.8 mg/dL (9.0-27.0); Glucose 105 mg/dL (70-110)
[2024-04-12 15:12] LABS: ALT 18 U/L (10-49); AST 31 U/L (14-35); Albumin 4.2 g/dL (3.8-4.9); Albumin/Globulin Ratio 1.24 Ratio (1.60-3.17); Alkaline Phosphatase 104 U/L (41-126); Carbon Dioxide 23.2 mmol/L (21.6-31.8); Chloride 104 mmol/L (96-109); Globulin 3.4 g/dL (1.6-3.3); Sodium 140 mmol/L (135-145); Total Protein 7.6 g/dL (6.2-8.2)
[2024-04-12 20:18] LABS: INR 1.22 sec (0.93-1.11)
== END | disposition home or self-care (01) ==
LOC: LABWHC1 11:10
PROVIDERS: ATTEND Internal Medicine Gastroenterology
DX: F10.988 Alcohol use, unspecified with other alcohol-induced disorder (principal)
CPT/HCPCS: 36415; 80053; 85025; 85610

== ENCOUNTER → 2024-09-27 | Outpatient (CLI) | payer OTHER ==
[2024-09-27 15:00] LABS: HGB 13.5 g/dL (13.0-17.0); MCH 30.5 pg (27.0-32.0); MCHC 33.8 g/dL (32.0-37.0); MCV 90.3 FL (80.0-97.0); Mean Platelet Volume 9.8 FL (9.5-12.2); NRBC Per 100 WBC 0 X 10*3/uL (0.00-0.01); Platelet Count 156 X 10*3/uL (140-440); RBC 4.43 X 10*6/uL (4.40-5.60); RDW 13.8 % (11.5-14.5); WBC 5.54 X 10*3/uL (4.50-10.00)
[2024-09-27 15:01] LABS: Basophils # (A) 0.02 X 10*3/uL (0.00-0.10); Basophils % (A) 0.4 %; Eosinophils # (A) 0.21 X 10*3/uL (0.04-0.35); Eosinophils % (A) 3.8 %; Lymphocytes % (A) 18.1 %; Monocytes # (A) 0.33 X 10*3/uL (0.20-1.00); Neutrophils # (A) 3.97 X 10*3/uL (1.80-7.70); Neutrophils % (A) 71.5 %
[2024-09-27 15:20] LABS: INR 1.1 sec (0.93-1.11); Prothrombin Time 12.2 sec (9.9-11.9)
[2024-09-27 15:33] LABS: Chol/HDL Ratio 3.42 Ratio; Magnesium 1.5 mg/dL (1.5-2.4); VLDL Calculation 12.62 mg/dL (5.00-40.00)
[2024-09-27 15:34] LABS: ALT 20 U/L (10-49); AST 24 U/L (14-35); Albumin 4.4 g/dL (3.8-4.9); Albumin/Globulin Ratio 1.38 Ratio (1.60-3.17); Alkaline Phosphatase 147 U/L (41-126); BUN/Creat Ratio 13.12 Ratio (12.00-20.00); Blood Urea Nitrogen 10.5 mg/dL (9.0-27.0); Calcium 9.3 mg/dL (8.7-10.3); Chloride 102 mmol/L (96-109); Globulin 3.2 g/dL (1.6-3.3); Glucose 125 mg/dL (70-110); LDL Cholesterol,Calculated 95.7 mg/dL (0.0-131.0); Potassium 4.3 mmol/L (3.5-5.5); Sodium 139 mmol/L (135-145); Total Bilirubin 0.7 mg/dL (0.3-1.2); Total Protein 7.6 g/dL (6.2-8.2)
[2024-09-27 17:26] LABS: Microalbumin Creatinine Ratio <16 mg/g Cr (0-30); Urine Creatinine 77.2 mg/dL (39.0-259.0)
== END | disposition home or self-care (01) ==
LOC: LABWHC1 10:54
PROVIDERS: ATTEND Nurse Practitioner Family
DX: E11.65 Type 2 diabetes mellitus with hyperglycemia (principal); F10.988 Alcohol use, unspecified with other alcohol-induced disorder
CPT/HCPCS: 36415; 80053; 80061; 82043; 82570; 83735; 84443; 85025; 85610